=== PATIENT | female | born 1975 | race Caucasian/White ===

== ENCOUNTER 2016-05-25 18:49 | Emergency (ER) | payer OTHER ==
[~2016-05-25] VITALS: Ht 154.9 cm; Wt 70.9 kg
[~2016-05-25 18:49] MED LIST: PROM25TA9 PO; PRVHFAIN INH
[2016-05-25 19:02] VITALS: TEMP 37; Ht 154.9 cm; Wt 70.9 kg
[2016-05-25] MEDS ORDERED: MECLIZINE HCL 25 MG TAB PO STA (20:29)
[2016-05-25] MEDS ORDERED: SODIUM CHLORIDE 0.9% 1000ML 1,000 ML IV STA (20:29)
[2016-05-25] MEDS ORDERED: SODIUM CHLORIDE 0.9% 1000ML 500 ML IV STA (20:29)
[2016-05-25 20:57] LABS: BASO % 0.5 %; BASO ABS # 0.04 K/uL (0-0.2); COMPLETE YES; EOS % 1.3 %; HEMATOCRIT 39.2 % (37-47); LYMPH ABS # 2.76 K/uL (1.2-3.4); MEAN CELL VOLUME 89.5 fL (80-100); MEAN CORPUSCULAR HEMOGLOBIN 31.1 pg (25-34); MEAN CORPUSCULAR HGB CONC 34.7 g/dl (32-36); MEAN PLATELET VOLUME 10.9 fL (7.4-10.4); MONO % 6.1 %; NEUT % 60.1 %; PLATELET COUNT 253 K/uL (130-400); RED BLOOD COUNT 4.38 M/uL (4.2-5.4); WHITE BLOOD COUNT 8.63 K/uL (4.8-10.8)
--- NOTE | 2016-05-25 21:03 | EMERGENCY ROOM VISIT NOTE ---
History Report prepared by Eran: Lashanda Stein Under the Supervision of: Dr. Gadiel Abdullahi M.D. First contact with patient: 20:07 Chief Complaint: VERTIGO Stated Complaint: VERTIGO(SEVERE), PERIOD W/ HEAVY FLOW, LYMES Nursing Triage Summary: pt states she developed severe vertigo around 1430 today History of Present Illness The patient is a 40 year old female who presents to the Emergency Room with complaints of constant vertigo beginning 6 hours prior to arrival. The patient notes that she use to experience dizziness with migraine however denies ever having a sensation like this. She describes the vertigo as a spinning sensation and is having trouble focusing. The patient is experiencing nausea. She also has a headache in the back of her head which is not her typical migraine location. She does note that movement worsens the symptoms and leaning against a solid object helps to subside the symptoms. The patient yesterday had a very heavy period. She denies weakness to her extremities, head injury, or vision changes. The patient finished her last treatment for Lyme in April 2016. Her PTSD medication dosage has been lowered recently. 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 Review of Systems See HPI for pertinent positives & negatives. A total of 10 systems reviewed and were otherwise negative. Past Medical & Surgical Medical Problems: (1) Asthma (2) Depression (3) Ovarian cyst Surgical Problems: (1) History of appendectomy (2) History of cardiac ablation (3) History of tonsillectomy Family History FHx: cancer FHx: heart disease FHx: hypertension Social History Smoking Status: Never Smoker Alcohol Use: none Drug Use: none Marital Status: Housing Status: lives with significant other Occupation Status: employed Current/Historical Medications Scheduled Albuterol (Ventolin Hfa), 2 PUFFS INH UD Epinephrine (Epipen), 0.3 MG IM UD Escitalopram Oxalate (Lexapro), 2.5 MG PO DAILY Scheduled PRN Clonazepam (Klonopin), 0.5 MG PO TID PRN for Anxiety Diphenhydramine Hcl (Benadryl Allergy), 1-2 CAP PO Q8H PRN for Itching Meclizine HCl (Meclizine HCl), 1-2 TAB PO Q6H PRN for Dizziness or Vertigo Naproxen (Aleve), 220 MG PO Q12H PRN for Pain Promethazine Hcl (Phenergan), 25 MG PO Q6H PRN for Nausea Allergies Coded Allergies: Della Nut (Unverified Allergy, Severe, STOPS BREATHING, 02/19/16) Erythromycin (Verified Allergy, Intermediate, ABDOMINAL PAIN, 02/19/16) NUTS (Verified Allergy, Intermediate, SHORTNESS OF BREATH, 02/19/16) Ciprofloxacin (Verified Allergy, Unknown, unknown, 02/19/16) Physical Exam Vital Signs Date Time Temp Pulse Resp B/P Pulse Ox O2 Delivery O2 Flow Rate FiO2 05/25/16 20:51 67 16 134/85 100 Room Air 05/25/16 19:02 37.0 92 18 137/93 97 Room Air Physical Exam GENERAL: Patient is in no acute distress. HEENT: No acute trauma, normocephalic atraumatic, mucous membranes moist, no nasal congestion, no scleral icterus. Pupils are equal and reactive to light, no nystagmus. Right TM clear, left TM has fluid behind the rum with no infection. NECK: No stridor, no adenopathy, no meningismus, trachea is midline. LUNGS: Clear to auscultation bilaterally, no wheeze, no rhonchi, breath sounds equal. HEART: Without murmurs gallops or rubs, regular rate and rhythm. ABDOMEN: Soft, nontender, bowel sounds positive, no hernias, no peritonitis. EXTREMITIES: No cyanosis or edema, full range of motion of all the joints without pain or difficulty, no signs for acute trauma. NEUROLOGIC: Oriented x 3, no acute motor or sensory deficits, no focal weakness. No pronator drift or cerebellar dysfunction. SKIN: No rash, no jaundice, no diaphoresis. Medical Decision & Procedures ER Provider Diagnostic Interpretation: CT results as stated below per my review and radiologist interpretation: CT HEAD WITHOUT CONTRAST (CT) CLINICAL HISTORY: Altered mental status. Weakness. COMPARISON STUDY: 08/21/2011 TECHNIQUE: Axial CT of the brain is performed from the vertex to the skull base. IV contrast was not administered for this examination. CT DOSE: 537.48 mGy.cm FINDINGS: No intra or extra-axial mass lesions are visualized. There is no CT evidence of acute cortical infarction. There is no evidence of midline shift. There is no acute hemorrhage. No calvarial fractures are visualized. There is no evidence of pathologic ventricular dilatation. There is no evidence of acute sinusitis IMPRESSION: Normal noncontrast head CT for age Electronically signed by: Darin Bennett M.D. 05/25/2016 9:08 PM Dictated Date/Time: 05/25/2016 9:07 PM Laboratory Results 05/25/16 20:47 Red Blood Count 4.38, Mean Corpuscular Volume 89.5, Mean Corpuscular Hemoglobin 31.1, Mean Corpuscular Hemoglobin Concent 34.7, Mean Platelet Volume 10.9, Neutrophils (%) (Auto) 60.1, Lymphocytes (%) (Auto) 32.0, Monocytes (%) (Auto) 6.1, Eosinophils (%) (Auto) 1.3, Basophils (%) (Auto) 0.5, Neutrophils # (Auto) 5.19, Lymphocytes # (Auto) 2.76, Monocytes # (Auto) 0.53, Eosinophils # (Auto) 0.11, Basophils # (Auto) 0.04 05/25/16 20:47 Test 05/25/16 00:00 05/25/16 20:47 Urine Color YELLOW Urine Appearance CLEAR (CLEAR) Urine pH 5.0 (4.5-7.5) Urine Specific [place] 1.000 (1.000-1.030) Urine Protein NEG (NEG) Urine Glucose (UA) NEG (NEG) Urine Ketones NEG (NEG) Urine Occult Blood TRACE (NEG) Urine Nitrite NEG (NEG) Urine Bilirubin NEG (NEG) Urine Urobilinogen NEG (NEG) Urine Leukocyte Esterase NEG (NEG) Urine WBC (Auto) 0 /hpf (0-5) Urine RBC (Auto) 0-4 /hpf (0-4) Urine Hyaline Casts (Auto) 0 /lpf (0-5) Urine Epithelial Cells (Auto) 0-5 /lpf (0-5) Urine Bacteria (Auto) NEG (NEG) Urine Test NEG (NEG) White Blood Count 8.63 K/uL (4.8-10.8) Red Blood Count 4.38 M/uL (4.2-5.4) Hemoglobin 13.6 g/dL (12.0-16.0) Hematocrit 39.2 % (37-47) Mean Corpuscular Volume 89.5 fL (80-100) Mean Corpuscular Hemoglobin 31.1 pg (25-34) Mean Corpuscular Hemoglobin Concent 34.7 g/dl (32-36) Platelet Count 253 K/uL (130-400) Mean Platelet Volume 10.9 fL (7.4-10.4) Neutrophils (%) (Auto) 60.1 % Lymphocytes (%) (Auto) 32.0 % Monocytes (%) (Auto) 6.1 % Eosinophils (%) (Auto) 1.3 % Basophils (%) (Auto) 0.5 % Neutrophils # (Auto) 5.19 K/uL (1.4-6.5) Lymphocytes # (Auto) 2.76 K/uL (1.2-3.4) Monocytes # (Auto) 0.53 K/uL (0.11-0.59) Eosinophils # (Auto) 0.11 K/uL (0-0.5) Basophils # (Auto) 0.04 K/uL (0-0.2) RDW Standard Deviation 43.1 fL (36.4-46.3) RDW Coefficient of Variation 13.1 % (11.5-14.5) Immature Granulocyte % (Auto) 0.0 % Immature Granulocyte # (Auto) 0.00 K/uL (0.00-0.02) Anion Gap 10.0 mmol/L (3-11) Est Creatinine Clear Calc Drug Dose 109.2 ml/min Estimated GFR () 130.5 Estimated GFR (Non- 112.6 BUN/Creatinine Ratio 13.0 (10-20) Calcium Level 9.1 mg/dl (8.5-10.1) Total Bilirubin 0.1 mg/dl (0.2-1) Aspartate Amino Transf (AST/SGOT) 39 U/L (15-37) Alanine Aminotransferase (ALT/SGPT) 74 U/L (12-78) Alkaline Phosphatase 80 U/L (45-117) Total Protein 8.0 gm/dl (6.4-8.2) Albumin 3.9 gm/dl (3.4-5.0) Globulin 4.1 gm/dl (2.5-4.0) Albumin/Globulin Ratio 1.0 (0.9-2) Laboratory results reviewed by me. Medications Administered Medications (Trade) Dose Ordered Sig/Dawood Route Start Time Stop Time Status Last Admin Dose Admin Sodium Chloride 500 ml @ 999 mls/hr Q31M STAT IV 05/25/16 20:29 05/25/16 20:59 DC 05/25/16 20:49 999 MLS/HR Sodium Chloride (Nss 1000ml) 1,000 ml @ 200 mls/hr Q5H STAT IV 05/25/16 20:29 05/26/16 01:28 05/25/16 20:49 200 MLS/HR Meclizine HCl (Antivert Tab) 25 mg NOW STAT PO 05/25/16 20:29 05/25/16 20:32 DC 05/25/16 20:48 25 MG ECG Indication: other (vertigo) Rate (beats per minute): 70 Rhythm: normal sinus Findings: no acute ischemic change, no ectopy ED Course 2007: The patient was evaluated in room C10. A complete history and physical exam was performed. 2028: Antivert Tab 25 mg PO, Sodium Chloride 1,000 ml @ 200 mls/hr IV, Sodium Chloride 500 ml @ 999 mls/hr IV 2151: Reevaluated the patient. Discussed results and discharge instructions: She verbalized understanding and agreement. The patient is ready for discharge. Medical Decision The patient is a 40 year old female who presents to the ED with complaints of vertigo. Differential diagnoses considered include medication reaction, vertigo , anemia, electrolyte imbalance, dehydration, UTI, intracranial bleeding, stroke , migraine. There is no leukocytosis or concerning anemia. No significant electrolyte abnormality, kidney failure or hepatitis. Urinalysis does not show infection. testing is negative. On exam, there were no focal neurologic deficits. The patient was not febrile or toxic. There was no meningismus. Brain CT was done, no acute bleed or mass effect. The patient presents with a mild posterior headache, what sounds like vertigo and nausea. Her workup is benign, she was given IV saline and oral meclizine, she feels markedly improved. The patient likely has vertigo. She is being discharged on meclizine. If worsening, she can return. Outpatient family doctor follow-up was suggested. Impression Primary Impression: Vertigo Scribe Attestation The scribe's documentation has been prepared under my direction and personally reviewed by me in its entirety. I confirm that the note above accurately reflects all work, treatment, procedures, and medical decision making performed by me. Departure Information Dispostion Home / Self-Care Prescriptions Meclizine HCl (Meclizine HCl) 25 Mg Tab 1-2 TAB PO Q6H Y for Dizziness or Vertigo, #15 TAB Prov: Gadiel Abdullahi M.D. 05/25/16 Referrals Cici Coronel M.D. (PCP) Forms HOME CARE DOCUMENTATION FORM, IMPORTANT VISIT INFORMATION, WORK / SCHOOL INSTRUCTIONS Patient Instructions My [facility] Additional Instructions fluids rest meclizine 1-2 tab every 6 hours for vertigo as needed follow with delfino mueller this week return for worsening symptoms testing today was all ok
[2016-05-25 21:10] LABS: PREG INTERNAL NEGATIVE QC NEG CLEAR BACKGROUND; PREG INTERNAL POSITIVE QC POS CONTROL LINE
--- NOTE | 2016-05-25 21:10 | DIAGNOSTIC IMAGING REPORT ---
CT HEAD WITHOUT CONTRAST (CT) CLINICAL HISTORY: Altered mental status. Weakness. COMPARISON STUDY: 08/21/2011 TECHNIQUE: Axial CT of the brain is performed from the vertex to the skull base. IV contrast was not administered for this examination. CT DOSE: 537.48 mGy.cm FINDINGS: No intra or extra-axial mass lesions are visualized. There is no CT evidence of acute cortical infarction. There is no evidence of midline shift. There is no acute hemorrhage. No calvarial fractures are visualized. There is no evidence of pathologic ventricular dilatation. There is no evidence of acute sinusitis IMPRESSION: Normal noncontrast head CT for age Electronically signed by: Darin Bennett M.D. 05/25/2016 9:08 PM Dictated Date/Time: 05/25/2016 9:07 PM
[2016-05-25 21:11] LABS: MANUAL MICROSCOPIC REQUIRED? NO; REVIEW REQ? NO; URINE APPEARANCE CLEAR (CLEAR); URINE BILIRUBIN NEG (NEG); URINE COLOR YELLOW; URINE EPITHELIAL CELL AUTO 0-5 /lpf (0-5); URINE NITRITE NEG (NEG); UROBILINOGEN NEG (NEG); ZZUR CULT IF INDIC CLEAN CATCH NO
[2016-05-25 21:15] LABS: CALCIUM 9.1 mg/dl (8.5-10.1); CREATININE 0.61 mg/dl (0.60-1.20); POTASSIUM 3.6 mmol/L (3.5-5.1)
[2016-05-25] MEDS ORDERED: ANT25 PO (21:51)
[2016-05-25] MEDS ORDERED: MECLIZINE HCL 25MG HOME PACK PO ONE (22:00)
[2016-05-25 22:28] VITALS: BP 108/87; PULSE 66; O2SAT 95
[2016-09-09] MEDS ORDERED: ESCI1TAB6 PO (11:53)
[2016-11-05] MEDS ORDERED: POTA99TA PO (11:14)
[2016-11-05] MEDS ORDERED: CLON0.5T3 PO (11:14)
[2016-11-05] MEDS ORDERED: MULT-506 PO (11:14)
[2016-11-16] MEDS ORDERED: HYDR-5688 PO (09:30)
== END 2016-05-25 22:29 | disposition home or self-care (01) ==
LOC: C.EDB 18:50 → C.EDC 22:29
DX: R42 Dizziness and giddiness (principal); J45.909 Unspecified asthma, uncomplicated; F32.9 Major depressive disorder, single episode, unspecified; F43.10 Post-traumatic stress disorder, unspecified; Z79.899 Other long term (current) drug therapy

== ENCOUNTER → 2016-09-05 | Outpatient (CLI) | payer OTHER ==
[~2016-09-05] MED LIST changes: +ACET-1256 PO; +ALBU18002 INH; +ANT25 PO; +AZIT250T PO; +CLON0.5T3 PO; +CLR10 PO; +DIPH25CA65 PO; +EPP3/2 IM; +ESCI1TAB6 PO; +FLUT0.15 NAE; +GUAI100L18 PO; +HYDR-5688 PO; +IBUP-103 PO; +LAMO25TA PO; +MULT-506 PO; +NAPR1TAB9 PO; +POTA99TA PO; +PRED20TA PO; -PROM25TA9 PO
--- NOTE | 2016-09-06 13:20 | MAMMOGRAPHY REPORT ---
BILATERAL DIGITAL SCREENING MAMMOGRAM TOMOSYNTHESIS WITH CAD: 09/05/2016 CLINICAL HISTORY: Routine screening. TECHNIQUE: Breast tomosynthesis in addition to standard 2D mammography was performed. Current study was also evaluated with a Computer Aided Detection (CAD) system. COMPARISON: Comparison is made to exams dated: 06/25/2014 mammogram, 06/25/2014 ultrasound, and 2014 breast MRI. BREAST COMPOSITION: The tissue of both breasts is heterogeneously dense, which may obscure small ma sses. FINDINGS: There is architectural distortion seen within the left slightly medial breast, possibly p rojecting superiorly on the MLO view. Additionally, there are multiple other areas of possible arch itectural distortion seen within the left lateral and medial breast on the tomosynthesis images. Re commend spot compression tomosynthesis views and possible breast ultrasound for further evaluation. The remainder of both breasts are stable compared to prior exams, without suspicious masses, calcifi cations, or areas of architectural distortion noted. Bilateral benign-appearing calcifications are not significantly changed. There are multiple small circumscribed masses seen bilaterally, best see n on the tomosynthesis images, which are considered benign given the multiplicity and bilaterality a nd likely represent cysts. IMPRESSION: ACR BI-RADS CATEGORY 0: INCOMPLETE EVALUATION: NEED ADDITIONAL IMAGING EVALUATION Areas of left breast architectural distortion, for which additional imaging evaluation is recommende d. The patient will be called to schedule an appointment. Approximately 10% of breast cancers are not detected with mammography. A negative mammographic repor t should not delay biopsy if a clinically suggestive mass is present. Ita Crooks M.D. ah/:09/05/2016 16:37:13 Bait Tier: Prerna SIBLEY(R)(M), [facility] letter sent: Addl Imaging 0 BI-RADS Code: ACR BI-RADS Category 0: Incomplete Evaluation: Need Additional Imaging Evaluation
== END | disposition home or self-care (01) ==
LOC: C.MAMM 12:49
PROVIDERS: ATTEND Family Medicine
DX: Z12.31 Encounter for screening mammogram for malignant neoplasm of breast (principal); N64.9 Disorder of breast, unspecified

== ENCOUNTER 2016-09-09 22:14 | Emergency (ER) | payer OTHER ==
[~2016-09-09] VITALS: Ht 154.9 cm; Wt 74.5 kg
[~2016-09-09 22:14] MED LIST changes: -ACET-1256 PO; -ALBU18002 INH; -AZIT250T PO; -CLON0.5T3 PO; -CLR10 PO; -DIPH25CA65 PO; -EPP3/2 IM; -FLUT0.15 NAE; -GUAI100L18 PO; -HYDR-5688 PO; -IBUP-103 PO; -LAMO25TA PO; -MULT-506 PO; -NAPR1TAB9 PO; -POTA99TA PO; -PRED20TA PO
[2016-09-09 22:21] VITALS: TEMP 37; Ht 154.9 cm; Wt 74.5 kg
[2016-09-09] MEDS ORDERED: NAPR1TAB9 PO (22:30)
[2016-09-09] MEDS ORDERED: CLON0.5T3 PO ×2 (22:30→22:53)
[2016-09-09] MEDS ORDERED: DIPH25CA65 PO (22:33)
[2016-09-09] MEDS ORDERED: EPP3/2 IM (22:39)
[2016-09-09] MEDS ORDERED: METHYLPREDNISOLONE 125 MG VIAL IV STA (22:46)
[2016-09-09] MEDS ORDERED: FLUT0.15 NAE (22:53)
[2016-09-09] MEDS ORDERED: ALBU18002 INH (22:53)
[2016-09-09] MEDS ORDERED: PRED20TA PO (22:53)
[2016-09-09] MEDS ORDERED: CLR10 PO (22:53)
[2016-09-09] MEDS ORDERED: GUAI100L18 PO (22:53)
[2016-09-09] MEDS ORDERED: LAMO25TA PO (22:53)
[2016-09-09] MEDS ORDERED: SODIUM CHLORIDE 0.9% 1000ML 1,000 ML IV ONE (23:00)
[2016-09-09] MEDS ORDERED: ALBUT/IPRATROP 3MG/0.5MG NEB 3 ML VIAL INH ONE (23:00)
[2016-09-09 23:10] LABS: URINE APPEARANCE CLEAR (CLEAR); URINE BILIRUBIN NEG (NEG); URINE COLOR YELLOW; URINE NITRITE NEG (NEG); URINE SPECIFIC GRAVITY 1.019 (1.000-1.030); UROBILINOGEN NEG (NEG); ZZUR CULT IF INDIC CLEAN CATCH NO
[2016-09-09 23:14] VITALS: O2SAT 98
[2016-09-09 23:14] LABS: MANUAL MICROSCOPIC REQUIRED? NO; REVIEW REQ? NO
[2016-09-09 23:19] LABS: WHITE BLOOD COUNT 10.94 K/uL (4.8-10.8)
[2016-09-09 23:20] LABS: COMPLETE YES; HEMATOCRIT 38.7 % (37-47); IG% 0.5 %; LYMPH % 11.5 %; LYMPH ABS # 1.26 K/uL (1.2-3.4); MEAN CELL VOLUME 91.1 fL (80-100); MEAN CORPUSCULAR HEMOGLOBIN 29.6 pg (25-34); MEAN CORPUSCULAR HGB CONC 32.6 g/dl (32-36); MEAN PLATELET VOLUME 10.3 fL (7.4-10.4); MONO % 2.7 %; NEUT % 85.3 %; PLATELET COUNT 307 K/uL (130-400); RED BLOOD COUNT 4.25 M/uL (4.2-5.4)
[2016-09-09 23:36] LABS: BUN/CREATININE RATIO 12.4 (10-20); CALCIUM 8.6 mg/dl (8.5-10.1); CREATININE 0.67 mg/dl (0.60-1.20); POTASSIUM 4.2 mmol/L (3.5-5.1)
[2016-09-09 23:38] LABS: ALB/GLOB RATIO 0.9 (0.9-2)
[2016-09-09 23:44] VITALS: PULSE 100; O2SAT 100
[2016-09-10] VITALS: BP 102/67
[2016-09-10] MEDS ORDERED: AZIT250T PO (00:11)
[2016-09-10] MEDS ORDERED: AZITHROMYCIN 250 MG TAB PO ONE (00:15)
--- NOTE | 2016-09-10 04:59 | EMERGENCY ROOM VISIT NOTE ---
History First contact with patient: 22:30 Chief Complaint: RESPIRATORY PROBLEMS Stated Complaint: PAIN W/BREATHING, HEAVY CHEST, HX BRONCHITIS Nursing Triage Summary: Pt came in tonight for worsening respiratory issues. Pt has been having trouble breathing for the last 2 weeks. Yesterday the pt came in and was diagnosed with bronchitis. Pt was given inhaler and prednisone. Pt states that its very difficult for her to get her breath. She states it feels like something is sitting on her chest. She has been coughing up a lot of mucus. History of Present Illness The patient is a 41 year old female who presents to the Emergency Room with complaints of cough and chest congestion for the past 11 days. The patient states that she went to her primary care physician yesterday was diagnosed with bronchitis. The patient was given an inhaler and a prescription for prednisone. The patient states that she has felt well throughout the day, but now that it is nighttime she feels it is difficult for her to get her breath. She reports central chest pain after coughing, and states that the cough has been productive. She does not report fever or chills. No abdominal pain. The patient has not had chronic symptoms like this in the past and rates her current discomfort at 7/10. Review of Systems More than 10 systems were reviewed and otherwise negative with the exception of history of present illness. Past Medical/Surgical History Medical Problems: (1) Asthma (2) Depression (3) Ovarian cyst Surgical Problems: (1) History of appendectomy (2) History of cardiac ablation (3) History of tonsillectomy Family History FHx: cancer FHx: heart disease FHx: hypertension Social History Smoking Status: Never Smoker Alcohol Use: none Drug Use: none Marital Status: Housing Status: lives with significant other Occupation Status: employed Current/Historical Medications Scheduled Albuterol Sulfate (Proair Respiclick), 2 PUFFS INH Q4H Azithromycin (Zithromax), 250 MG PO DAILY Clonazepam (Klonopin), 0.5 MG PO HS Escitalopram Oxalate (Lexapro), 2.5 MG PO DAILY Fluticasone Propionate (Nasal) (Flonase Allergy Relief), 2 SPRAYS RINKU DAILY Lamotrigine (Lamictal), 25 MG PO DAILY Prednisone (Prednisone), 20 MG PO UD Scheduled PRN Clonazepam (Klonopin), 0.5 MG PO DAILY PRN for Anxiety Diphenhydramine Hcl (Benadryl Allergy), 25-50 MG PO Q8H PRN for Itching Epinephrine (Epipen), 0.3 MG IM UD PRN for ALLERGIC REACTION Guaifenesin (Childrens Mucus Relief Ex), 200 MG PO Q4H PRN for Congestion Loratadine (Claritin), 10 MG PO DAILY PRN for Allergy Symptoms Naproxen (Aleve), 220 MG PO Q12H PRN for Pain Allergies Coded Allergies: Della Nut (Unverified Allergy, Severe, STOPS BREATHING, 05/25/16) Erythromycin (Verified Allergy, Intermediate, ABDOMINAL PAIN, 05/25/16) NUTS (Verified Allergy, Intermediate, SHORTNESS OF BREATH, 05/25/16) Ciprofloxacin (Verified Allergy, Unknown, unknown, 05/25/16) Physical Exam Vital Signs Date Time Temp Pulse Resp B/P Pulse Ox O2 Delivery O2 Flow Rate FiO2 09/10/16 00:00 102/67 09/09/16 23:44 100 20 100 09/09/16 23:34 122/74 09/09/16 23:14 80 14 98 09/09/16 23:14 98 Room Air 09/09/16 23:13 80 09/09/16 23:10 83 18 112/78 98 Room Air 09/09/16 22:41 97 Room Air 09/09/16 22:21 37.0 88 22 140/89 94 Room Air Pain Rating (0-10): 6.0 Physical Exam VITALS: Vitals are noted on the nurse's note and reviewed by myself. Vital signs stable. GENERAL: Well-developed, well-nourished, white female, who is in no acute distress and resting comfortably. Patient is cooperative with the examination. HEAD: Normocephalic atraumatic. EARS: External ear normal. External auditory canals clear, tympanic membranes pearly nails without erythema or effusion bilaterally. EYES: Pupils equal round and reactive to light and accommodation. Conjunctivae without injection, sclerae without icterus. Extraocular movements intact. NOSE: Patent, turbinates without inflammation or discharge. MOUTH: Mucous membranes moist. Tonsils are not enlarged. Pharynx without erythema, blood, or exudate. Uvula midline. Airway patent. NECK: Supple without nuchal rigidity. No lymphadenopathy. No thyromegaly. Cervical spine is nontender. HEART: Regular rate and rhythm without murmurs gallops or rubs. LUNGS: Coarse breath sounds throughout with scattered wheezing and rhonchi. No distinct crackles or rales. After treatment lung sounds were improved with scant wheezing. Medical Decision & Procedures Laboratory Results 09/09/16 23:00 Red Blood Count 4.25, Mean Corpuscular Volume 91.1, Mean Corpuscular Hemoglobin 29.6, Mean Corpuscular Hemoglobin Concent 32.6, Mean Platelet Volume 10.3, Neutrophils (%) (Auto) 85.3, Lymphocytes (%) (Auto) 11.5, Monocytes (%) (Auto) 2.7, Eosinophils (%) (Auto) 0.0, Basophils (%) (Auto) 0.0, Neutrophils # (Auto) 9.33, Lymphocytes # (Auto) 1.26, Monocytes # (Auto) 0.30, Eosinophils # (Auto) 0.00, Basophils # (Auto) 0.00 09/09/16 23:00 Test 09/09/16 22:55 09/09/16 23:00 09/09/16 23:05 Urine Color YELLOW Urine Appearance CLEAR (CLEAR) Urine pH 8.0 (4.5-7.5) Urine Specific [place] 1.019 (1.000-1.030) Urine Protein NEG (NEG) Urine Glucose (UA) TRACE (NEG) Urine Ketones NEG (NEG) Urine Occult Blood NEG (NEG) Urine Nitrite NEG (NEG) Urine Bilirubin NEG (NEG) Urine Urobilinogen NEG (NEG) Urine Leukocyte Esterase NEG (NEG) White Blood Count 10.94 K/uL (4.8-10.8) Red Blood Count 4.25 M/uL (4.2-5.4) Hemoglobin 12.6 g/dL (12.0-16.0) Hematocrit 38.7 % (37-47) Mean Corpuscular Volume 91.1 fL (80-100) Mean Corpuscular Hemoglobin 29.6 pg (25-34) Mean Corpuscular Hemoglobin Concent 32.6 g/dl (32-36) Platelet Count 307 K/uL (130-400) Mean Platelet Volume 10.3 fL (7.4-10.4) Neutrophils (%) (Auto) 85.3 % Lymphocytes (%) (Auto) 11.5 % Monocytes (%) (Auto) 2.7 % Eosinophils (%) (Auto) 0.0 % Basophils (%) (Auto) 0.0 % Neutrophils # (Auto) 9.33 K/uL (1.4-6.5) Lymphocytes # (Auto) 1.26 K/uL (1.2-3.4) Monocytes # (Auto) 0.30 K/uL (0.11-0.59) Eosinophils # (Auto) 0.00 K/uL (0-0.5) Basophils # (Auto) 0.00 K/uL (0-0.2) RDW Standard Deviation 45.0 fL (36.4-46.3) RDW Coefficient of Variation 13.5 % (11.5-14.5) Immature Granulocyte % (Auto) 0.5 % Immature Granulocyte # (Auto) 0.05 K/uL (0.00-0.02) Anion Gap 8.0 mmol/L (3-11) Est Creatinine Clear Calc Drug Dose 100.9 ml/min Estimated GFR () 125.7 Estimated GFR (Non- 108.4 BUN/Creatinine Ratio 12.4 (10-20) Calcium Level 8.6 mg/dl (8.5-10.1) Total Bilirubin 0.1 mg/dl (0.2-1) Aspartate Amino Transf (AST/SGOT) 45 U/L (15-37) Alanine Aminotransferase (ALT/SGPT) 168 U/L (12-78) Alkaline Phosphatase 95 U/L (45-117) Total Protein 7.9 gm/dl (6.4-8.2) Albumin 3.7 gm/dl (3.4-5.0) Globulin 4.2 gm/dl (2.5-4.0) Albumin/Globulin Ratio 0.9 (0.9-2) Bedside D-Dimer 173 ng/mlFEU (0-450) Bedside Troponin I 0.000 ng/ml (0-0.045) Medications Administered Medications (Trade) Dose Ordered Sig/Dawood Route Start Time Stop Time Status Last Admin Dose Admin Sodium Chloride (Nss 1000ml) 1,000 ml @ 999 mls/hr Q1H1M ONCE IV 09/09/16 23:00 09/10/16 00:00 DC 09/09/16 23:08 999 MLS/HR Methylprednisolone Sodium Succinate (Solu-Medrol IV) 125 mg NOW STAT IV 09/09/16 22:46 09/09/16 22:48 DC 09/09/16 23:08 125 MG Albuterol/ Ipratropium (Duoneb) 3 ml NOW ONCE INH 09/09/16 23:00 09/09/16 23:01 DC 09/09/16 23:08 3 ML Azithromycin (Zithromax Tab) 500 mg NOW ONCE PO 09/10/16 00:15 09/10/16 00:16 DC 09/10/16 00:15 500 MG ECG Change: Normal sinus rhythm @79 bpm Normal ECG When compared with ECG of 25-MAY-2016 20:43, QRS axis Shifted left Nonspecific T wave abnormality no longer evident in Lateral leads ED Course Physical exam and history were performed. Nursing notes and EMR were reviewed. Patient appears to have bronchitis symptoms for the past 11 days. She does also complain of some central chest discomfort after coughing. EKG was performed and does not show acute ST elevation or ectopy. Chest x-ray was performed. IV access was established and labs were obtained. The patient was hydrated and medicated as above. I did give her Solu-Medrol and a breathing treatment here. The patient's blood work is as above and does not show a significantly elevated white blood cell count, gross anemia, bandemia, or significant electrolyte imbalance. Lipase and transaminases are nondiagnostic. Troponin and d-dimer 1 are both negative, and I do not suspect a cardiac etiology at this time. Her chest x-rays without obvious findings with official radiology read pending. The patient did have improvement of her symptoms after the DuoNeb and Solu- Medrol. I do suspect that she has a bronchitis, and this may persist for the next several days. I will give the patient a course of Zithromax as she has had symptoms for greater than 1 week. She will be asked to follow with her primary care physician with any ongoing or persistent symptoms. The chart was completed utilizing [employer] Speech Voice Recognition Software. Grammatical errors, random word insertions, pronoun errors, and incomplete sentences are an occasional consequence of this system due to software limitations, ambient noise, and hardware issues. Any formal questions or concerns about the content, text, or information contained within the body of this dictation should be directly addressed to the provider for clarification. . Medical Decision Differential diagnosis: Etiologies such as infections, reactive airway disease, pneumonia, pneumothorax , COPD, CHF, cardiac ischemia, pulmonary embolism, musculoskeletal, gastrointestinal, as well as others were entertained. Impression Primary Impression: Acute bronchitis Departure Information Dispostion Home / Self-Care Condition GOOD Prescriptions Azithromycin (Zithromax) 250 Mg Tab 250 MG PO DAILY for 4 Days, #4 TAB Prov: Sesar Marvin PA-C 09/10/16 Forms HOME CARE DOCUMENTATION FORM, IMPORTANT VISIT INFORMATION Patient Instructions My [facility] Additional Instructions You were seen and evaluated today on an emergency basis only. This is not a substitute for, or an effort to provide, complete comprehensive medical care. It is not possible to recognize and treat all injuries or illnesses in a single emergency department visit. For this reason it is recommended that you followup with your primary care physician this week for ongoing care and evaluation. Take Zithromax 250 mg daily for the next 4 days. Continue your prednisone and albuterol as previously instructed. You are welcome to return to the emergency department anytime with new, worsening, or concerning symptoms.
--- NOTE | 2016-09-10 06:56 | DIAGNOSTIC IMAGING REPORT ---
CHEST 2 VIEWS ROUTINE CLINICAL HISTORY: Persistent cough. COMPARISON STUDY: Chest radiograph April 03, 2012. FINDINGS: Lung volumes are normal. Mild left basilar opacity suggests atelectasis. No consolidation is identified. Cardiac size is normal. Mediastinal contours are normal. There is no evidence of pulmonary edema. Interstitial prominence is unchanged. IMPRESSION: No acute cardiopulmonary findings. Electronically signed by: Reagan Cowan M.D. 09/10/2016 6:54 AM Dictated Date/Time: 09/10/2016 6:52 AM
[2016-11-05] MEDS ORDERED: CLON0.5T3 PO (11:14)
[2016-11-05] MEDS ORDERED: POTA99TA PO (11:14)
[2016-11-05] MEDS ORDERED: MULT-506 PO (11:14)
[2016-11-16] MEDS ORDERED: HYDR-5688 PO (09:30)
== END 2016-09-10 00:20 | disposition home or self-care (01) ==
LOC: C.EDB 22:15 → C.EDA 09-10 00:20
DX: J20.9 Acute bronchitis, unspecified (principal); J45.909 Unspecified asthma, uncomplicated; F33.41 Major depressive disorder, recurrent, in partial remission; Z82.49 Family history of ischemic heart disease and other diseases of the circulatory system

== ENCOUNTER → 2016-09-13 | Outpatient (CLI) | payer OTHER ==
[~2016-09-13] MED LIST changes: +ACET-1256 PO; +ALBU18002 INH; -ANT25 PO; +AZIT250T PO; +CLON0.5T3 PO; +CLR10 PO; +DIPH25CA65 PO; +EPP3/2 IM; +FLUT0.15 NAE; +GUAI100L18 PO; +HYDR-5688 PO; +IBUP-103 PO; +LAMO25TA PO; +MULT-506 PO; +NAPR1TAB9 PO; +POTA99TA PO; +PRED20TA PO; -PRVHFAIN INH
--- NOTE | 2016-09-14 15:08 | MAMMOGRAPHY REPORT ---
UNILATERAL LEFT DIGITAL DIAGNOSTIC MAMMOGRAM TOMOSYNTHESIS AND TARGETED LEFT ULTRASOUND: 09/13/2016 CLINICAL HISTORY: Callback from screening mammogram for left breast distortions. TECHNIQUE: Breast tomosynthesis in addition to standard 2D mammography was performed. Spot lori sidney left CC and MLO tomosynthesis images including CT views were obtained. COMPARISON: Comparison is made to exams dated: 09/05/2016 mammogram - [facility], breast MRI, 06/25/2014 mammogram, and 06/25/2014 ultrasound. BREAST COMPOSITION: The tissue of the left breast is heterogeneously dense, which may obscure small masses. FINDINGS: Spot compression views of the left breast demonstrate a focal area of architectural disto rtion posterior to the left nipple on the cc view, thought to project superiorly on the MLO view. T he finding does not appear significantly changed compared to 2-D images from the 06/25/2014 exam. Ad ditionally, there are other areas of possible architectural distortion seen on the tomosynthesis meseret ges, including in the left medial breast on the cc view middle depth (image 34/89), the left 6:00 br east, best seen on the cc tomosynthesis images (image 12/89), as well as possible ill-defined distor tion seen within the left upper outer quadrant best seen on the CC images (image 30/91). The distor tions are much better seen on the tomosynthesis images therefore comparison to the 2014 exam is diff icult as the prior images were only 2-D images. Targeted ultrasound was performed of the left breast in the region of the areas of distortion. The breast tissue is markedly heterogeneous on ultrasound, which reduces the sensitivity of the exam. I n the left breast at 11:00 3 cm from the nipple, there is a ill-defined focal hypoechoic shadowing r egion measuring 2 mm, which could potentially correlate with the most prominent area of distortion. In the left breast at 6:00, there are fibrocystic changes seen without evidence of a suspicious mas s. small benign appearing simple cysts are also seen within the left upper outer quadrant, without e vidence of a suspicious mass. A subtle area of shadowing is seen within the left breast at 4:00 on antiradial scanning, which does not clearly persist on radial scanning and could represent normal sh adowing of Omer's ligament. Given the presence of multiple areas of probable distortion and given the ill-defined nature of find ings on ultrasound, I would recommend a breast MRI for further evaluation. On discussion with the p kaykay, she had difficult times with prior MRIs, and reports that her heart rate increased significa ntly after gadolinium injection and she was quite uncomfortable for even days afterwards. She repor ts a history of a prior arrhythmia status post ablation. Given the prior adverse reaction to gadoli nium, at this time we will defer breast MRI. I would like to sample the dominant area of distortion posterior to the left nipple on the cc view, with differential including radial scar versus maligna ncy. We will attempt stereotactic biopsy, and base the management of the other areas of distortion on the pathology results. IMPRESSION: ACR BI-RADS CATEGORY 4: SUSPICIOUS, TARGETED ULTRASOUND ACR BI-RADS CATEGORY 4: SUSPICI OUS Focal area of architectural distortion in the left breast posterior to the nipple on the cc view, wi th other probable smaller areas of distortion seen on the tomosynthesis images within the left later al and medial breast. Sonographic correlates are not clearly identified. I would recommend bilater al breast MRI for further evaluation, however, the patient has had prior difficulties with prior amado olinium administration as discussed above. Therefore, we will attempt stereotactic biopsy of the do minant area of distortion posterior to the left nipple, and if successful, management of the other a reas of distortion will be based on the pathology results. Given the presence of multiple distortio ns, findings likely represent radial scars although malignancy is not excluded. A phone call was made to the physician's office to confirm faxed results were received. The patient has been verbally notified of the results. She tentatively scheduled the biopsy before leaving the department. Approximately 10% of breast cancers are not detected with mammography. A negative mammographic repor t should not delay biopsy if a clinically suggestive mass is present. Ita Crooks M.D. ah/:09/13/2016 16:06:51 Power Project Manager: Prerna Cornejo, [facility] letter sent: Abnormal 4/5 BI-RADS Code: ACR BI-RADS Category 4: Suspicious Ultrasound BI-RADS: ACR BI-RADS Category 4: Suspic ious
== END | disposition home or self-care (01) ==
LOC: C.MAMM 10:12
PROVIDERS: ATTEND Family Medicine
DX: R92.8 Other abnormal and inconclusive findings on diagnostic imaging of breast (principal)

== ENCOUNTER → 2016-09-20 | Outpatient (CLI) | payer OTHER ==
[~2016-09-20] MED LIST changes: -AZIT250T PO
--- NOTE | 2016-09-20 13:22 | Discharge Instructions ---
Discharge Instructions Procedure Procedure Date: September 20, 2016. Reason for visit: Left Distortion. Discharge Discharge Date: September 20, 2016. Discharge Diagnosis: status post breast biopsy Instructions Activity Recommendations: Additional Limitations (see below) Return to School/Work: no limitations Recommended Home Diet: No Limitations Provider Instructions: ACTIVITY RECOMMENDATIONS: * No lifting, pushing, pulling or exercising the affected side for three days. RETURN TO SCHOOL/WORK: * You may return to work/school after the procedure, but do not perform any strenuous activities for 24 to 48 hours. MEDICATIONS: * Tylenol (two 325 mg) every four to six hours if needed for mild pain (if not allergic to Tylenol). DIET: * Resume previous diet. SPECIAL CARE INSTRUCTIONS: * Keep biopsy site dry for 24 hours. May shower after 24 hours, but do not soak (bathe) incision. * May remove Tegaderm (plastic patch) tomorrow AFTER showering. * Leave the steri-strips on for one week. Allow the steri-strips to fall off by themselves. If not off after one week, you may remove them. You may place a Bandaid crosswise over the strips, if desired. * Apply ice 10 minutes on and 10 minutes off as needed. * Wear a bra at bedtime to sleep more comfortably for 2-3 days. * Your referring physician should have the results after approximately 5 to 7 business days. * Call for unusual bleeding, fever, drainage, etc or if you have any questions call during normal business hours or after hours call Dr Crooks, [phone]. FOLLOW UP VISIT: Follow-up with Referring Physician as scheduled. Allergies Coded Allergies: Della Nut (Unverified Allergy, Severe, STOPS BREATHING, 05/25/16) Erythromycin (Verified Allergy, Intermediate, ABDOMINAL PAIN, 05/25/16) NUTS (Verified Allergy, Intermediate, SHORTNESS OF BREATH, 05/25/16) Ciprofloxacin (Verified Allergy, Unknown, unknown, 05/25/16) Elayne Kingsley Recommendations: Call your doctor if: * Temperature above 101 degrees * Pain not relieved by pain medicine ordered * There is increased drainage or redness from any incision * You have any unanswered questions or concerns. Your Doctors Instructions noted above were prepared by provider Ita Crooks. Patient Signature Section: Patient Instructions Signature Page Padmini Zepeda Patient (or Guardian) Signature/Date: I have read and understand the instructions given to me by my caregivers. Caregiver/RN/Doctor Signature/Date: The above-named patient and/or guardian has received patient instructions on this date. + Original Patient Signature Page (only) stays with chart. Please make copy for patient.
--- NOTE | 2016-09-20 15:54 | MAMMOGRAPHY REPORT ---
THIS REPORT HAS BEEN AMENDED. AMENDMENT: 09/26/2016 Ita Crooks M.D. Pathology results from left breast stereotactic biopsy was reviewed on 09/26/2016. The pathology lex wed a radial scar with usual ductal hyperplasia, with surgical excision recommended by the pathologi st. The pathology is concordant with the imaging findings, and surgical excision of the dominant bi opsied area of distortion in the left breast is recommended. If the final pathology of the surgical excision is benign and not malignant, recommend short interval follow-up diagnostic mammograms of t kiera other smaller possible areas of distortion within the left breast in 6 months. STEREOTACTIC GUIDED BIOPSY LEFT BREAST: 09/20/2016 CLINICAL HISTORY: Architectural distortion within the left breast. PATIENT CONSENT: The procedure, risks, benefits, and alternatives of stereotactic biopsy with clip p lacement were discussed with the patient, and verbal and written consent was obtained. A timeout wa s performed immediately prior to the procedure. PROCEDURE DESCRIPTION: With stereotactic guidance, aseptic technique, and lidocaine as a local anest hetic (1% lidocaine to anesthetize the skin and 1% lidocaine with epinephrine to anesthetize the umm per tissues), the area of concern was sampled multiple times with a 9-gauge vacuum-assisted biopsy n eedle ([employer]). The path of approach was craniocaudal. A metallic marker clip was placed at t kiera biopsy site. This was confirmed on postprocedure mammograms. Direct pressure was applied at the biopsy site and hemostasis was readily achieved. The patient tolerated the procedure without compl ication. She was given wound care instructions. COMPARISON: Comparison is made to exams dated: 09/13/2016 mammogram, 09/13/2016 ultrasound, 09/05/2016 mammogram - [facility], 06/25/2014 mammogram, 06/25/2014 ultrasound, and 07/15/2014 b reast MRI. IMPRESSION: STEREOTACTIC GUIDED BIOPSY Stereotactic biopsy of area of architectural distortion in the left breast posterior to the left nip ple on the cc view, with clip placement. The patient will receive pathology results from her referr ing provider. The pathology results will also be reviewed and an addendum will be made if there are further recommendations once results are reviewed. Ita Crooks M.D. ah/:09/20/2016 13:41:40 Attending Technologist: Belinda DAVID)(M), [facility] Standards Analyst: Vika DAVID)(M), [facility]
--- NOTE | 2016-09-20 15:54 | MAMMOGRAPHY REPORT ---
UNILATERAL LEFT DIGITAL DIAGNOSTIC MAMMOGRAM TOMOSYNTHESIS: 09/20/2016 CLINICAL HISTORY: Status post left breast stereotactic biopsy. TECHNIQUE: Breast tomosynthesis in addition to standard 2D mammography was performed. Left CC and ML 2-D and tomosynthesis images were obtained. COMPARISON: Comparison is made to exams dated: 09/13/2016 mammogram, 09/13/2016 ultrasound, 09/05/2016 mammogram - [facility], 07/15/2014 breast MRI, 06/25/2014 mammogram, and 06/25/2014 u ltrasound. BREAST COMPOSITION: The tissue of the left breast is heterogeneously dense, which may obscure small masses. FINDINGS: A preprocedural left cc view was obtained for biopsy planning purposes. Postprocedural l eft CC and ML tomosynthesis images including C views were obtained, which shows a new biopsy marker clip in the l eft 12:00 breast at the site of the biopsied architectural distortion. A small postbiopsy hematoma is noted which measures 12 mm. IMPRESSION: POST PROCEDURE IMAGING FOR MARKER PLACEMENT New biopsy marker clip status post stereotactic biopsy of architectural distortion in the left 12:00 breast. Pathology results are pending. Approximately 10% of breast cancers are not detected with mammography. A negative mammographic repor t should not delay biopsy if a clinically suggestive mass is present. Ita Crooks M.D. ah/:09/20/2016 13:43:44 Attending Technologist: Belinda Carrasquillo RT(R)(M), [facility] Filler Spreader: Vika Fernandez RT(R)(M), [facility] BI-RADS Code: Post Procedure Imaging For Marker Placement
== END | disposition home or self-care (01) ==
LOC: C.MAMM 12:33
PROVIDERS: ATTEND Family Medicine
DX: N60.92 Unspecified benign mammary dysplasia of left breast (principal)

== ENCOUNTER → 2016-11-16 | Day surgery (SDC) | payer OTHER ==
[2016-11-05 11:15] VITALS: Ht 154.9 cm; Wt 72.7 kg
[~2016-11-16] VITALS: Ht 154.9 cm; Wt 72.7 kg
[~2016-11-16] MED LIST changes: +ATROPINE SULFATE 0.1 MG/ML 5ML SYR IV PRN; +CLINDAMYCIN PHOS 150 MG/ML 2 ML VIAL IV SCH; +DEXAMETHASONE SOD INJ 4 MG/ML VIAL ONE; +EpHEDrine SULFATE INJ 50 MG/ML AMP IV PRN; +FENTANYL CITRATE INJ 50 MCG/1 ML 2 ML VIAL IV PRN; +FENTANYL CITRATE INJ 50 MCG/1 ML 2 ML VIAL ONE; -FLUT0.15 NAE; -GUAI100L18 PO; +HYDROCODONE/ACETAMOPHEN 5/325MG TAB PO PRN; +LACTATED RINGER'S 1000ML 1,000 ML IV SCH; +LIDOCAINE HCL 2% 2 ML VIAL (20MG/ML) ONE; +MIDAZOLAM HCL 1 MG/ML 2ML VIAL ONE; -NAPR1TAB9 PO; +ONDANSETRON INJ 2 MG/ML 2 ML VIAL IV PRN; +ONDANSETRON INJ 2 MG/ML 2 ML VIAL ONE; -PRED20TA PO; +PROMETHAZINE HCL INJ 6.25 MG in SODIUM CHLORIDE 0.9% 50ML 50 ML IV PRN; +PROPOFOL IV EMULSION 10 MG/ML 20 ML VIAL IV ONE; +SODIUM CHLORIDE 0.9% 1000ML 1,000 ML IV SCH; +SUCCINYLCHOLINE CHLORIDE 20 MG/ML 10 ML VIAL IV ONE
[2016-11-16] MEDS: BUPIVACAINE 0.5 % 5 MG/1 ML MPF 30ML VIAL ONE ×2 (08:35→08:58)
--- NOTE | 2016-11-16 08:38 | History & Physical Bridge - SC ---
H&P Re-Evaluation Bridge Note: I have examined the patient, reviewed the History & Physical and in the interval since the performance of the History & Physical I have noted the following changes of clinical significance: No changes noted
--- NOTE | 2016-11-16 09:32 | [facility] Operative Report ---
Operative Report Operative Date Nov 16, 2016. Pre-Operative Diagnosis Left breast abnormal mammogram Post-Operative Diagnosis Same as pre-op Procedure(s) Performed Left Breast Biopsy With Needle Localization Surgeon Dr. Figueroa Delivery Driver Surgeon(s) Noris PETERSON Estimated Blood Loss 5ML Findings Lt br tissue with clip Specimens A. Left breast tissue Removed from patient at 0906, sent fresh to breast [facility] Anesthesia gen/ LMA Complication(s) None Disposition Recovery Room / PACU Description of Procedure Patient was brought in the operating room placed In table in supine position. The breast was prepped and draped around the needle which had been placed the [facility]. Needle was medial. Incision is made transversely lateral to the needle toward the areola. She was carried out around the needle excising tissue anterior and superior to the needle. This was dense breast tissue with some fibrocystic changes. Tissue was sent to the breast center and the clip was within the specimen. Deep tissue was reapproximated using 20 plain catgut suture. Skin was reapproximated using subcuticular 5-0 Monocryl. Steri-Strips were applied a dressing applied and patient transferred to recovery room in stable condition. I attest to the content of the Intraoperative Record and any orders documented therein. Any exceptions are noted below.
--- NOTE | 2016-11-16 09:53 | Discharge Instructions-SurgCtr ---
Discharge Instructions Date of Service Nov 16, 2016. Visit Reason for Visit: Abnormal Mammogram, Abnormal Breast Bx Discharge Discharge Diagnosis / Problem: abnormal mammo Discharge Goals Goal(s): Decrease discomfort, Improve function, Improve disease control Activity Recommendations Activity Limitations: as noted below Lifting Limitations: gradually increase as tolerated Exercise/Sports Limitations: until after follow-up appointment May Resume Sexual Activity: when tolerated Shower/Bathe: keep incision dry (may shower over incision on Sun 11/18) Driving or Machine Use: resume 1 day after discharge SPECIAL CARE INSTRUCTIONS: * Cover incisions and change daily for comfort/drainage. * Leave steri strips in place * May use ibuprofen for pain as tolerated. * Expect some swelling and bruising. Call your doctor if: * Temperature above 101 degrees * Pain not relieved by pain medicine ordered * There is increased drainage or redness from any incision * You have any unanswered questions or concerns [phone]. FOLLOW UP VISIT: If not already scheduled, please call the office for a follow-up visit. for 2 weeks- check up- no sutures to remove OFFICE PHONE NUMBER: Dr. Figueroa Office Anesthesia . Post Anesthesia Instructions: If you have had General Anesthesia or IV Sedation: * Do not drive today. * Resume driving when surgeon permits. * Do not make important decisions or sign legal documents today. * Call surgeon for: 1. Temperature elevations greater than 101 degrees F. 2. Uncontrollable pain. 3. Excessive bleeding. 4. Persistent nausea and vomiting. 5. Medication intolerance (nausea, vomiting or rash). * For nausea and vomiting use only clear liquids such as: tea, soda, bouillon until nausea subsides, then gradually increase diet as tolerated. * If you have any concerns or questions, call your surgeon's office. If physician is unavailable and it is an emergency, call 911 or go to the nearest emergency room. . Diet Recommendations Home Diet: resume previous diet Procedures Procedures Performed: Left Breast Biopsy With Needle Localization Pending Studies Studies pending at discharge: no Medical Emergencies . Who to Call and When: Medical Emergencies: If at any time you feel your situation is an emergency, please call 911 immediately. . Non-Emergent Contact Non-Emergency issues call your: Primary Care Provider, Surgeon . . "Provider Documentation" section prepared by Lencho Figueroa. .
[2016-11-16 10:13] VITALS: TEMP 36.7
--- NOTE | 2016-11-16 10:42 | Anesthesia Progress Nt - [facility] ---
Anesthesia Post Op Note Date & Time Nov 16, 2016 at 10:42 Vital Signs Pain Intensity: 4.0 Vital Signs Past 12 Hours Date Time Temp Pulse Resp B/P (MAP) Pulse Ox O2 Delivery O2 Flow Rate FiO2 11/16/16 10:13 36.7 76 18 116/81 (93) 96 Room Air 11/16/16 10:07 131/60 11/16/16 10:03 78 17 97 11/16/16 10:03 77 17 11/16/16 10:01 117/72 11/16/16 09:58 79 22 95 11/16/16 09:58 79 22 11/16/16 09:56 114/75 11/16/16 09:53 81 19 95 11/16/16 09:53 82 19 11/16/16 09:53 36.4 81 20 112/75 97 Room Air 11/16/16 09:52 77 16 96 11/16/16 09:52 79 16 11/16/16 09:51 112/75 11/16/16 09:47 82 15 11/16/16 09:47 83 15 99 11/16/16 09:46 107/62 11/16/16 09:42 83 16 11/16/16 09:42 83 16 98 11/16/16 09:41 108/62 11/16/16 09:39 90 21 11/16/16 09:39 91 21 98 11/16/16 09:36 108/69 11/16/16 09:34 94 27 11/16/16 09:34 27 11/16/16 09:32 118/69 11/16/16 09:30 120/78 11/16/16 09:29 36.4 96 16 120/78 99 Diffusion Mask 6 11/16/16 07:30 36.5 70 16 111/75 (87) 97 Room Air Notes Mental Status: alert / awake / arousable, participated in evaluation Pt Amnestic to Procedure: Yes Nausea / Vomiting: adequately controlled Pain: adequately controlled Airway Patency, RR, SpO2: stable & adequate BP & HR: stable & adequate Hydration State: stable & adequate Anesthetic Complications: no major complications apparent
[2016-11-16 10:53] VITALS: BP 105/72; PULSE 71; O2SAT 99
--- NOTE | 2016-11-16 12:45 | MAMMOGRAPHY REPORT ---
NEEDLE LOCALIZATION LEFT BREAST: 11/16/2016 CLINICAL HISTORY: Recent stereotactic biopsy of left breast architectural distortion which yielded a radial scar. PROCEDURE DESCRIPTION: With imaging guidance, aseptic technique, and 1% lidocaine as the local anest hetic, the area of concern was localized with a 5 cm Romero 2 needle. The path of approach was medi al. The architectural distortion and associated biopsy marker clip are located anterior to the dista l portion of the wire at the level of the hook. The needle was left in place. The patient tolerated the procedure without complication. COMPARISON: Comparison is made to exams dated: 09/20/2016 stereotactic biopsy, 09/13/2016 mammogram, ultrasound, 09/05/2016 mammogram, and 09/20/2016 mammogram - [facility]. IMPRESSION: NEEDLE LOCALIZATION Mammographic-guided needle localization of architectural distortion and associated biopsy marker clip in the left breast. Ita Crooks M.D. ah/:11/16/2016 08:04:21 Attending Technologist: Prerna Cornejo, [facility] Tenterer: Vika Fernandez RT(R)(M), [facility]
--- NOTE | 2016-11-16 12:45 | MAMMOGRAPHY REPORT ---
SPECIMEN LEFT BREAST: 11/16/2016 CLINICAL HISTORY: Status post left breast surgical excision. COMPARISON: Comparison is made to exams dated: 09/20/2016 mammogram, 09/20/2016 stereotactic biopsy, mammogram, 09/13/2016 ultrasound, and 09/05/2016 mammogram - [facility]. Findings: A radiograph was performed of the left breast surgical specimen. The localized biopsy lisette er clip and the intact needle localization wire and needle are present within the specimen. Density is also seen within the specimen, which may represent the localized architectural distortion. A few calcifications are also seen within the specimen, which were shown to be located near the distortion on the needle localization images. Results were discussed with Dr. Figueroa over the telephone. IMPRESSION: SPECIMEN The imaged specimen contains the preoperatively-localized abnormality. Ita Crooks M.D. /:11/16/2016 09:26:22 Bleach Boiler Filler: Vika SIBLEY(Casey)(Jacques), [facility]
== END | disposition home or self-care (01) ==
LOC: X.SURG 07:16
PROVIDERS: ATTEND Surgery
DX: R92.8 Other abnormal and inconclusive findings on diagnostic imaging of breast (principal); R89.7 Abnormal histological findings in specimens from other organs, systems and tissues; Z86.61 Personal history of infections of the central nervous system; Z90.89 Acquired absence of other organs; J45.909 Unspecified asthma, uncomplicated

== ENCOUNTER 2017-01-13 23:41 | Emergency (ER) | payer OTHER ==
[~2017-01-13] VITALS: Ht 154.9 cm; Wt 74.6 kg
[~2017-01-13 23:41] MED LIST changes: -ACET-1256 PO; -ATROPINE SULFATE 0.1 MG/ML 5ML SYR IV PRN; -CLINDAMYCIN PHOS 150 MG/ML 2 ML VIAL IV SCH; -DEXAMETHASONE SOD INJ 4 MG/ML VIAL ONE; -EpHEDrine SULFATE INJ 50 MG/ML AMP IV PRN; -FENTANYL CITRATE INJ 50 MCG/1 ML 2 ML VIAL IV PRN; -FENTANYL CITRATE INJ 50 MCG/1 ML 2 ML VIAL ONE; -HYDROCODONE/ACETAMOPHEN 5/325MG TAB PO PRN; -IBUP-103 PO; -LACTATED RINGER'S 1000ML 1,000 ML IV SCH; -LIDOCAINE HCL 2% 2 ML VIAL (20MG/ML) ONE; -MIDAZOLAM HCL 1 MG/ML 2ML VIAL ONE; -ONDANSETRON INJ 2 MG/ML 2 ML VIAL IV PRN; -ONDANSETRON INJ 2 MG/ML 2 ML VIAL ONE; -PROMETHAZINE HCL INJ 6.25 MG in SODIUM CHLORIDE 0.9% 50ML 50 ML IV PRN; -PROPOFOL IV EMULSION 10 MG/ML 20 ML VIAL IV ONE; -SODIUM CHLORIDE 0.9% 1000ML 1,000 ML IV SCH; -SUCCINYLCHOLINE CHLORIDE 20 MG/ML 10 ML VIAL IV ONE
[2017-01-13 23:47] VITALS: TEMP 36.8; Ht 154.9 cm; Wt 74.6 kg
--- NOTE | 2017-01-14 00:50 | EMERGENCY ROOM VISIT NOTE ---
History Report prepared by Eran: Dwayne Velasquez Under the Supervision of: Dr. Marika Foster D.O. First contact with patient: 00:18 Chief Complaint: INFECTION Stated Complaint: POSS STAFF INFECTION AT BREAST BIOPSY SITE S/P2MO Nursing Triage Summary: this week was having severe h/a, chills, fever, hot flashes, muscle cramps, legs swelling up, then burning sensation and rash to left breast, same area where she had biopsy done 2 months ago History of Present Illness The patient is a 41 year old female who presents to the Emergency Room with concerns over a possible infection over the left breast. She notes that she had a surgical biopsy to remove a mass in the left breast on November 16 two months prior to this visit. She claims that she was recovering well following the procedure and did not experiencing any issues until this week when she began to experiencing a pain wrapping around her left back and around her left breast. The patient states that she began to experience fevers, chills, and headaches earlier this week as well. Today she noticed a "burning" sensation under the left breast and then noticed a rash under the left breast. The pain and burning has continued radiating into her armpit and wrapping around her back and left chest. The biopsy of the left breast tissue was benign and she does not require chemotherapy treatments. She claims that she does have a headache currently, dull and global, no change with position, no current fevers, no vision changes, no dizziness. Source of History: patient Onset: Earlier this week Position: other (Left breast ) Quality: burning Timing: worsening Associated Symptoms: + fevers, + chills, + headache Review of Systems See HPI for pertinent positives & negatives. A total of 10 systems reviewed and were otherwise negative. Past Medical & Surgical Medical Problems: (1) Asthma (2) Depression (3) Ovarian cyst Surgical Problems: (1) History of appendectomy (2) History of cardiac ablation (3) History of tonsillectomy Family History FHx: cancer FHx: heart disease FHx: hypertension Social History Smoking Status: Never Smoker Alcohol Use: none Drug Use: none Marital Status: Housing Status: lives with significant other Occupation Status: employed Current/Historical Medications Scheduled Clonazepam (Klonopin), 0.5 TAB PO HS Escitalopram Oxalate (Lexapro), 2.5 MG PO HS Lamotrigine (Lamictal), 25 MG PO HS Multivitamin (Multivitamin), 1 TAB PO QAM Scheduled PRN Acetaminophen (Tylenol), 1,000 MG PO Q6 PRN for Pain or Fever Albuterol Sulfate (Proair Respiclick), 2 PUFFS INH Q4H PRN for Shortness of Breath Clonazepam (Klonopin), 0.5 MG PO DAILY PRN for Anxiety Diphenhydramine Hcl (Benadryl Allergy), 25-50 MG PO Q8H PRN for Itching Epinephrine (Epipen), 0.3 MG IM UD PRN for ALLERGIC REACTION Ibuprofen Tab (Advil), 400 MG PO Q6 PRN for Pain or Fever Loratadine (Claritin), 10 MG PO DAILY PRN for Allergy Symptoms Potassium (Potassium), 1 TAB PO DAILY PRN for MUSCLE CRAMPING Allergies Coded Allergies: Della Nut (Unverified Allergy, Severe, STOPS BREATHING, 01/14/17) Erythromycin (Verified Allergy, Intermediate, ABDOMINAL PAIN, 01/14/17) NUTS (Verified Allergy, Intermediate, SHORTNESS OF BREATH, 01/14/17) Ciprofloxacin (Verified Allergy, Unknown, "FELT HORRIBLE, COULD NOT BREATHE", 01/14/17) Fluoxetine (Verified Allergy, Unknown, ENTIRE BODY ON FIRE, TACHY, 01/14/17 ) Physical Exam Vital Signs Date Time Temp Pulse Resp B/P (MAP) Pulse Ox O2 Delivery O2 Flow Rate FiO2 01/14/17 02:22 81 18 129/81 100 01/13/17 23:47 36.8 87 18 139/87 100 Room Air Physical Exam GENERAL: alert, well appearing, well nourished, no distress, non-toxic EYE EXAM: normal conjunctiva, PERRL and EOM's grossly intact OROPHARYNX: no exudate, no erythema, lips, buccal mucosa, and tongue normal and mucous membranes are moist NECK: supple, no nuchal rigidity, no adenopathy, non-tender LUNGS: Clear to auscultation. Normal chest wall mechanics HEART: no murmurs, S1 normal and S2 normal ABDOMEN: abdomen soft, non-tender, normo-active bowel sounds, no masses, no rebound or guarding. BACK: Back is symmetrical on inspection and there is no deformity, no midline tenderness, no CVA tenderness. SKIN: LEFT BREAST: There is a well healed scar at the ten o'clock position. There is very mild folliculitis present a the inferior aspect of both breasts medially. UPPER EXTREMITIES: upper extremities are grossly normal. LOWER EXTREMITIES: No pitting edema. NEURO EXAM: Normal sensorium, cranial nerves II-XII intact, normal speech, no weakness of arms, no weakness of legs. Medical Decision & Procedures ER Provider Diagnostic Interpretation: Radiology results have been interpreted by the radiologist and reviewed by me. SINGLE VIEW PORTABLE CHEST X-RAY: Chest X-ray shows no cardiomegaly, no effusion, no wide mediastinum, no focal infiltrate, no pulmonary edema. Laboratory Results 01/14/17 01:06 Red Blood Count 4.37, Mean Corpuscular Volume 89.2, Mean Corpuscular Hemoglobin 31.6, Mean Corpuscular Hemoglobin Concent 35.4, Mean Platelet Volume 10.3, Neutrophils (%) (Auto) 54.1, Lymphocytes (%) (Auto) 37.4, Monocytes (%) (Auto) 6.0, Eosinophils (%) (Auto) 1.7, Basophils (%) (Auto) 0.7, Neutrophils # (Auto) 4.09, Lymphocytes # (Auto) 2.82, Monocytes # (Auto) 0.45, Eosinophils # (Auto) 0.13, Basophils # (Auto) 0.05 01/14/17 01:06 Test 01/14/17 01:06 White Blood Count 7.55 K/uL (4.8-10.8) Red Blood Count 4.37 M/uL (4.2-5.4) Hemoglobin 13.8 g/dL (12.0-16.0) Hematocrit 39.0 % (37-47) Mean Corpuscular Volume 89.2 fL (80-100) Mean Corpuscular Hemoglobin 31.6 pg (25-34) Mean Corpuscular Hemoglobin Concent 35.4 g/dl (32-36) Platelet Count 251 K/uL (130-400) Mean Platelet Volume 10.3 fL (7.4-10.4) Neutrophils (%) (Auto) 54.1 % Lymphocytes (%) (Auto) 37.4 % Monocytes (%) (Auto) 6.0 % Eosinophils (%) (Auto) 1.7 % Basophils (%) (Auto) 0.7 % Neutrophils # (Auto) 4.09 K/uL (1.4-6.5) Lymphocytes # (Auto) 2.82 K/uL (1.2-3.4) Monocytes # (Auto) 0.45 K/uL (0.11-0.59) Eosinophils # (Auto) 0.13 K/uL (0-0.5) Basophils # (Auto) 0.05 K/uL (0-0.2) RDW Standard Deviation 41.8 fL (36.4-46.3) RDW Coefficient of Variation 12.8 % (11.5-14.5) Immature Granulocyte % (Auto) 0.1 % Immature Granulocyte # (Auto) 0.01 K/uL (0.00-0.02) Anion Gap 7.0 mmol/L (3-11) Est Creatinine Clear Calc Drug Dose 105.7 ml/min Estimated GFR () 127.6 Estimated GFR (Non- 110.1 BUN/Creatinine Ratio 18.1 (10-20) Lactic Acid Level 0.6 mmol/L (0.4-2.0) Calcium Level 8.5 mg/dl (8.5-10.1) Magnesium Level 2.3 mg/dl (1.8-2.4) Total Bilirubin 0.2 mg/dl (0.2-1) Aspartate Amino Transf (AST/SGOT) 19 U/L (15-37) Alanine Aminotransferase (ALT/SGPT) 36 U/L (12-78) Alkaline Phosphatase 81 U/L (45-117) Troponin I < 0.015 ng/ml (0-0.045) Total Protein 7.7 gm/dl (6.4-8.2) Albumin 3.9 gm/dl (3.4-5.0) Globulin 3.8 gm/dl (2.5-4.0) Albumin/Globulin Ratio 1.0 (0.9-2) Influenza Type A Antigen Neg for Influ A (NEG) Influenza Type B Antigen Neg for Influ B (NEG) Laboratory results per my review. ECG Indication: chest pain Rate (beats per minute): 65 Rhythm: normal sinus Findings: no ectopy, other (Normal axis, normal intervals, low voltage throughout) ED Course 0024: The patient was evaluated in room B10. A complete history and physical exam was performed. 0201: Upon reevaluation, the patient is feeling better. I discussed the findings and the treatment plan with the patient. She verbalizes agreement and understanding. The patient was discharged home. Medical Decision Differential diagnosis: Etiologies such as contact dermatitis, viral exanthem, urticaria, allergic reaction, Ocasio-Wild syndrome, toxic epidermal necrolysis, erythema multiforme, cellulitis, scabies, HSV, varicella, zoster, eczema, staph scalded skin syndrome, fungal infection, as well as others were entertained. no evidence of zoster, sjs/ten, appearance of mild folliculitis along inferior margin of breasts medically at junction with chest wall, no evidence of surrounding cellulitis. Incision from biopsy well healed. no other evidence of focal source of infection despite varied vague symptoms over the week, possible viral syndrome. pt requested cultures be sent as a precaution. Vs stable. Doubt bacteremia/sepsis. Discussed with her sx to watch/return, f/u with PCP, hydration, she verbalized understanding and was agreeable with plan. Did not feel pt warranted LP to r/o meningitis. Pt well appearing, tolerating po. No focal neuro deficits. Medication Reconcilliation Current Medication List: was personally reviewed by me Blood Pressure Screening Patient's blood pressure: Elevated blood pressure Blood pressure disposition: Elevated BP felt to be situational Impression Primary Impression: Folliculitis Additional Impression: Viral syndrome Scribe Attestation The scribe's documentation has been prepared under my direction and personally reviewed by me in its entirety. I confirm that the note above accurately reflects all work, treatment, procedures, and medical decision making performed by me. Departure Information Dispostion Home / Self-Care Referrals Cici Coronel M.D. (PCP) Forms HOME CARE DOCUMENTATION FORM, IMPORTANT VISIT INFORMATION, WORK / SCHOOL INSTRUCTIONS Patient Instructions My [facility] Additional Instructions Please continue to stay well-hydrated, you may eat normally. Please follow up with your family doctor as a precaution. If you develop any worsening symptoms or any other new concerns, please return the emergency room. Problem Qualifiers
[2017-01-14 01:15] LABS: BASO % 0.7 %; BASO ABS # 0.05 K/uL (0-0.2); COMPLETE YES; EOS % 1.7 %; IG% 0.1 %; LYMPH % 37.4 %; LYMPH ABS # 2.82 K/uL (1.2-3.4); MEAN CELL VOLUME 89.2 fL (80-100); MEAN CORPUSCULAR HEMOGLOBIN 31.6 pg (25-34); MEAN CORPUSCULAR HGB CONC 35.4 g/dl (32-36); MEAN PLATELET VOLUME 10.3 fL (7.4-10.4); NEUT % 54.1 %; PLATELET COUNT 251 K/uL (130-400); RED BLOOD COUNT 4.37 M/uL (4.2-5.4); WHITE BLOOD COUNT 7.55 K/uL (4.8-10.8)
[2017-01-14 01:33] LABS: ALT/SGPT 36 U/L (12-78); AST/SGOT 19 U/L (15-37); BLOOD UREA NITROGEN 12 mg/dl (7-18); BUN/CREATININE RATIO 18.1 (10-20); CALCIUM 8.5 mg/dl (8.5-10.1); CARBON DIOXIDE 24 mmol/L (21-32); CHLORIDE 108 mmol/L (98-107); CREATININE 0.64 mg/dl (0.60-1.20); GLUCOSE 94 mg/dl (70-99); MAGNESIUM 2.3 mg/dl (1.8-2.4); SODIUM 139 mmol/L (136-145)
[2017-01-14] MEDS ORDERED: ACET-1256 PO (01:33)
[2017-01-14] MEDS ORDERED: IBUP-103 PO (01:33)
[2017-01-14 01:38] LABS: ALKALINE PHOSPHATASE 81 U/L (45-117)
[2017-01-14 02:22] VITALS: BP 129/81; PULSE 81; O2SAT 100
--- NOTE | 2017-01-14 06:41 | DIAGNOSTIC IMAGING REPORT ---
CHEST ONE VIEW PORTABLE CLINICAL HISTORY: Chest pain. COMPARISON STUDY: Chest radiograph September 09, 2016. FINDINGS: Lung volumes are normal. No pneumothorax or pleural effusion is present. Pulmonary vascularity is normal. No consolidation is identified. Cardiomediastinal silhouette is normal. The appearance of the chest is unchanged. IMPRESSION: No acute cardiopulmonary findings. Electronically signed by: Reagan Cowan M.D. 01/14/2017 6:40 AM Dictated Date/Time: 01/14/2017 6:40 AM
== END 2017-01-14 02:22 | disposition home or self-care (01) ==
LOC: C.EDB 23:43
DX: L73.9 Follicular disorder, unspecified (principal); B34.9 Viral infection, unspecified; R51 Headache; R50.9 Fever, unspecified; F32.9 Major depressive disorder, single episode, unspecified; J45.909 Unspecified asthma, uncomplicated; Z79.899 Other long term (current) drug therapy; Z87.42 Personal history of other diseases of the female genital tract; Z82.49 Family history of ischemic heart disease and other diseases of the circulatory system

== ENCOUNTER 2017-04-23 22:52 | Emergency (ER) | payer OTHER ==
[~2017-04-23] VITALS: Ht 154.9 cm; Wt 76.0 kg
[~2017-04-23 22:52] MED LIST changes: +ACET-1256 PO; -HYDR-5688 PO; +IBUP-103 PO
[2017-04-23 22:56] VITALS: TEMP 37; Ht 154.9 cm; Wt 76.0 kg
[2017-04-23] MEDS ORDERED: IBUPROFEN 600 MG TAB PO STA (23:03)
--- NOTE | 2017-04-23 23:15 | EMERGENCY ROOM VISIT NOTE ---
History Report prepared by Eran: Zamzam Heath Under the Supervision of: Dr. Gadiel Abdullahi M.D. First contact with patient: 23:01 Chief Complaint: ILLNESS Stated Complaint: 17:30 SUDDEN ONSET OF FLU SYMPTOMS, SORE THROAT History of Present Illness The patient is a 41 year old female who presents to the Emergency Room with complaints of a constant illness beginning 6 hours ago. The patient states that she had sudden onset of flu-like symptoms beginning 6 hours ago. She reports that she developed a sore throat and when she looked at it she noticed white pustules. She notes that she has been having ear aches, headaches, fever, chills , body aches, nausea, cough, and her heart is racing. The patient denies any vomiting and urinary symptoms. She notes that she has been around a lot of people lately. She reports that she took Klonopin and it did relieve her heart rate some. She also took Tylenol prior to arrival. Source of History: patient Onset: 6 hours ago Position: other (global) Quality: other (flu-like symptoms) Timing: constant Associated Symptoms: + fevers, + chills, + headache, + sorethroat, + cough, + nausea, + diarrhea, No vomiting, No urinary symptoms Note: She notes that she has been having ear aches, body aches, and her heart is racing. Review of Systems See HPI for pertinent positives & negatives. A total of 10 systems reviewed and were otherwise negative. Past Medical & Surgical Medical Problems: (1) Asthma (2) Depression (3) Ovarian cyst Surgical Problems: (1) History of appendectomy (2) History of cardiac ablation (3) History of tonsillectomy Family History FHx: cancer FHx: heart disease FHx: hypertension Social History Smoking Status: Never Smoker Alcohol Use: none Drug Use: none Marital Status: Housing Status: lives with significant other Occupation Status: employed Current/Historical Medications Scheduled Clonazepam (Klonopin), 1.5 TABS PO HS Oseltamivir Phosphate (Tamiflu), 1 CAP PO BID Scheduled PRN Acetaminophen (Tylenol), 1,000 MG PO Q6 PRN for Pain or Fever Albuterol Sulfate (Proair Respiclick), 2 PUFFS INH Q4H PRN for Shortness of Breath Clonazepam (Klonopin), 0.5 MG PO DAILY PRN for Anxiety Diphenhydramine Hcl (Benadryl Allergy), 25-50 MG PO Q8H PRN for Itching Epinephrine (Epipen), 0.3 MG IM UD PRN for ALLERGIC REACTION Loratadine (Claritin), 10 MG PO DAILY PRN for Allergy Symptoms Allergies Coded Allergies: Della Nut (Unverified Allergy, Severe, STOPS BREATHING, 04/23/17) Erythromycin (Verified Allergy, Intermediate, ABDOMINAL PAIN, 04/23/17) NUTS (Verified Allergy, Intermediate, SHORTNESS OF BREATH, 04/23/17) Ciprofloxacin (Verified Allergy, Unknown, "FELT HORRIBLE, COULD NOT BREATHE", 04/23/17) Fluoxetine (Verified Allergy, Unknown, ENTIRE BODY ON FIRE, TACHY, ) Physical Exam Vital Signs Date Time Temp Pulse Resp B/P (MAP) Pulse Ox O2 Delivery O2 Flow Rate FiO2 04/23/17 22:56 37.0 112 20 119/80 96 Room Air Physical Exam GENERAL: Patient is in no acute distress. HEENT: No acute trauma, normocephalic atraumatic, mucous membranes moist, no nasal congestion, no scleral icterus. Mild throat erythema, no exudate. TMs clear bilaterally. NECK: No stridor, mild bilateral anterior cervical adenopathy, no meningismus, trachea is midline. LUNGS: Clear to auscultation bilaterally, no wheeze, no rhonchi, breath sounds equal. HEART: Mildly tachycardic with a regular rhythm no murmurs. ABDOMEN: Soft, nontender, bowel sounds positive, no hernias, no peritonitis. EXTREMITIES: No cyanosis or edema, full range of motion of all the joints without pain or difficulty, no signs for acute trauma. NEUROLOGIC: Oriented x 3, no acute motor or sensory deficits, no focal weakness. SKIN: No rash, no jaundice, no diaphoresis. Medical Decision & Procedures Laboratory Results Laboratory results reviewed by me. Urine dip negative for infection or blood. Rapid strep testing negative. Medications Administered Medications (Trade) Dose Ordered Sig/Dawood Route Start Time Stop Time Status Last Admin Dose Admin Ibuprofen (Motrin Tab) 600 mg NOW STAT PO 04/23/17 23:03 04/23/17 23:09 DC 04/23/17 23:28 600 MG Oseltamivir Phosphate (Tamiflu Cap) 75 mg NOW STAT PO 04/23/17 23:22 04/23/17 23:23 DC 04/23/17 23:27 75 MG Ondansetron HCl (Zofran Odt) 4 mg NOW STAT PO 04/23/17 23:29 04/23/17 23:30 DC 04/23/17 23:29 4 MG Ondansetron HCl (ZOFRAN ODT 4MG Home Pack) 1 homepack UD ONCE PO 04/23/17 23:30 04/23/17 23:31 DC 04/23/17 23:30 1 HOMEPACK ED Course 2301: The patient was evaluated in room B11. A complete history and physical exam was performed. 2303: Ibuprofen 600mg PO. 2322: Tamiflu Cap 75mg PO. 2329: Zofran Odt 4mg PO. 2330: Ondansetron HCl 1 homepack PO. 2334: Reevaluated the patient. Discussed results and discharge instructions: She verbalized understanding and agreement. The patient is ready for discharge. Medical Decision The patient is a 41 year old female who presents to the ED with complaints of flu-like symptoms. Differential diagnoses considered include flu-like illness, influenza, strep pharyngitis, URI, pneumonia. The patient presents with the sudden onset of flulike symptoms. On exam, there was no meningismus. She was not toxic. Lungs were clear. There was no otitis media. Strep testing was negative. Urine dip did not show infection. The patient likely has influenza or some other flulike illness. As she has presented quickly, I think Tamiflu would be a reasonable option. She was given a dose here orally. She also received a dose of oral Motrin and was given a dose of oral Zofran. The patient will be discharged on Tamiflu. [id number] Motrin or Tylenol for fever or aches. Rest and hydration were encouraged. She was given a few Zofran to take with her for nausea-these can be used as needed. If worsening, she will return for reassessment. Medication Reconcilliation Current Medication List: was personally reviewed by me Blood Pressure Screening Patient's blood pressure: Normal blood pressure Blood pressure disposition: Did not require urgent referral Impression Primary Impression: Flu-like symptoms Scribe Attestation The scribe's documentation has been prepared under my direction and personally reviewed by me in its entirety. I confirm that the note above accurately reflects all work, treatment, procedures, and medical decision making performed by me. Departure Information Dispostion Home / Self-Care Prescriptions Oseltamivir Phosphate (Tamiflu) 75 Mg Cap 1 CAP PO BID for 5 Days, #10 CAP Prov: Gadiel Abdullahi M.D. 04/23/17 Referrals Cici Coronel M.D. (PCP) Forms HOME CARE DOCUMENTATION FORM, IMPORTANT VISIT INFORMATION, WORK / SCHOOL INSTRUCTIONS Patient Instructions My [facility] Additional Instructions tamiflu as directed fluids rest motrin and or tylenol for fever and aches see delfino mueller for a recheck this week return for worsening symptoms strep test and urine testing were ok today
[2017-04-23] MEDS ORDERED: OSELTAMIVIR PHOSPHATE 75 MG CAP PO STA (23:22)
[2017-04-23] MEDS ORDERED: NF406 PO (23:26)
[2017-04-23] MEDS ORDERED: ONDANSETRON 4MG OD TAB PO STA (23:29)
[2017-04-23] MEDS ORDERED: ONDANSETRON HOME PACK 4MG OD TAB PO ONE (23:30)
[2017-04-23 23:37] VITALS: BP 114/86; PULSE 100; O2SAT 96
== END 2017-04-23 23:38 | disposition home or self-care (01) ==
LOC: C.EDB 22:53
DX: R51 Headache (principal); H92.09 Otalgia, unspecified ear; R11.0 Nausea; R05 Cough; J45.909 Unspecified asthma, uncomplicated; F32.9 Major depressive disorder, single episode, unspecified; Z80.9 Family history of malignant neoplasm, unspecified; Z82.49 Family history of ischemic heart disease and other diseases of the circulatory system; R50.9 Fever, unspecified

== ENCOUNTER 2017-04-27 14:02 | Emergency (ER) | payer OTHER ==
[~2017-04-27] VITALS: Ht 154.9 cm; Wt 74.6 kg
[~2017-04-27 14:02] MED LIST changes: -ESCI1TAB6 PO; -IBUP-103 PO; -LAMO25TA PO; -MULT-506 PO; +NF406 PO; -POTA99TA PO
[2017-04-27 14:04] VITALS: Ht 154.9 cm; Wt 74.6 kg
[2017-04-27] MEDS ORDERED: DiphenhydrAMINE HCL 50 MG/ML VIAL IV STA (14:16)
[2017-04-27] MEDS ORDERED: METOCLOPRAMIDE HCL INJ 5 MG/ML 2 ML VIAL IV STA (14:16)
[2017-04-27] MEDS ORDERED: SODIUM CHLORIDE 0.9% 1000ML 2,000 ML IV STA (14:16)
[2017-04-27] MEDS ORDERED: KETOROLAC TROMETHAMINE 30 MG/ML VIAL IV STA (14:16)
--- NOTE | 2017-04-27 14:42 | EMERGENCY ROOM VISIT NOTE ---
History Report prepared by Eran: Maddie Lancaster Under the Supervision of: Dr. Lb Kay M.D. First contact with patient: 14:08 Chief Complaint: FLU LIKE SX Stated Complaint: FLU IS WORSE,VOMITING,PASSING OUT,HEADACHE History of Present Illness The patient is a 41 year old female who presents to the Emergency Room with complaints of persistent vomiting for two days [employer]. She notes a headache, fever , chills, diaphoresis, nausea, diarrhea, loss of appetite, near syncope, fatigue , body aches, loss of sleep, neck pain, ear pain, sore throat, swollen neck glands, dehydration, and productive cough with green sputum. She currently rates her pain an 8/10 in severity. She notes her urine was orange in color. She was recently seen in the ED on April 23, 2017 for flu-like symptoms, though she was not vomiting at that time. She was given a strep test, though it was negative. She was recently seen by her PCP yesterday. She was prescribed Tamiflu and Zofran, though she has not been able to keep the medications down. She notes that she was at a [employer] with children 8 days ago, though her flu like symptoms began four days ago. She notes her last dose of Children' s Tylenol was five hours ago. Pt denies leg pain, leg swelling, joint pain, chest pain, breathing difficulties, abdominal pain, back pain, melena, hematochezia, urinary symptoms, numbness, weakness, or other complaints. 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 Review of Systems See HPI for pertinent positives and negatives. A total of ten systems were reviewed and were otherwise negative. Past Medical & Surgical Medical Problems: (1) Asthma (2) Depression (3) Ovarian cyst Surgical Problems: (1) History of appendectomy (2) History of cardiac ablation (3) History of tonsillectomy Family History FHx: cancer FHx: heart disease FHx: hypertension Social History Smoking Status: Never Smoker Alcohol Use: none Drug Use: none Marital Status: Housing Status: lives with significant other Occupation Status: employed Current/Historical Medications Scheduled Clonazepam (Klonopin), 1.5 TABS PO HS Ondasetron Odt (Zofran Odt), 4 MG SL Q6H Oseltamivir Phosphate (Tamiflu), 1 CAP PO BID Scheduled PRN Acetaminophen (Tylenol), 1,000 MG PO Q6 PRN for Pain or Fever Albuterol Sulfate (Proair Respiclick), 2 PUFFS INH Q4H PRN for Shortness of Breath Clonazepam (Klonopin), 0.5 MG PO DAILY PRN for Anxiety Diphenhydramine Hcl (Benadryl Allergy), 25-50 MG PO Q8H PRN for Itching Epinephrine (Epipen), 0.3 MG IM UD PRN for ALLERGIC REACTION Loratadine (Claritin), 10 MG PO DAILY PRN for Allergy Symptoms Metoclopramide (Reglan), 10 MG PO Q6H PRN for Nausea Ondansetron Hcl (Zofran), 4 MG PO DAILY PRN for Nausea Allergies Coded Allergies: Della Nut (Unverified Allergy, Severe, STOPS BREATHING, 04/27/17) Erythromycin (Verified Allergy, Intermediate, ABDOMINAL PAIN, 04/27/17) NUTS (Verified Allergy, Intermediate, SHORTNESS OF BREATH, 04/27/17) Ciprofloxacin (Verified Allergy, Unknown, "FELT HORRIBLE, COULD NOT BREATHE", 04/27/17) Fluoxetine (Verified Allergy, Unknown, ENTIRE BODY ON FIRE, TACHY, ) Physical Exam Vital Signs Date Time Temp Pulse Resp B/P (MAP) Pulse Ox O2 Delivery O2 Flow Rate FiO2 04/27/17 18:29 37.0 83 23 118/79 99 04/27/17 18:06 83 23 99 Room Air 04/27/17 18:01 118/79 04/27/17 17:36 88 24 04/27/17 17:31 87 18 105/85 100 Room Air 04/27/17 17:07 87 18 100 Room Air 04/27/17 17:01 118/76 04/27/17 16:31 123/86 04/27/17 16:07 82 16 04/27/17 16:02 19 04/27/17 16:01 128/86 04/27/17 15:32 105/71 04/27/17 15:05 91 04/27/17 15:01 113/76 04/27/17 14:55 91 19 113/84 100 Room Air 04/27/17 14:04 37.0 88 18 117/82 94 Room Air Physical Exam GENERAL: Awake, alert, uncomfortable and mildly ill appearing, no distress HEAD: Normocephalic, atraumatic. No edema. EYES: Normal conjunctiva. Sclera non-icteric. EARS: Right TM normal. Left TM normal. NOSE: Normal. OROPHARYNX: Lips, tongue, and mucosa unremarkable except mildly dry lips. Posterior mild erythema. No exudate. NECK: Supple. No nuchal rigidity. FROM. Negative jolt accentuation. Mild anterior adenopathy. Negative jolt accentuation test. RESPIRATORY: CTA bilaterally. No wheezes rales or rhonchi. CARDIAC: Regular rate, normal rhythm. ABDOMEN: Soft, non distended. No tenderness to palpation. NEURO: Normal sensorium. SKIN: No rash or jaundice noted MUSCULOSKELETAL: No edema. Medical Decision & Procedures ER Provider Diagnostic Interpretation: Radiology results as stated below per my review and radiologist interpretation: CHEST ONE VIEW PORTABLE HISTORY: flu like symptoms COMPARISON: Chest 01/14/2017. FINDINGS: The lungs are clear. Cardiac silhouette is normal in size. No pleural effusions. No pneumothorax. IMPRESSION: No acute process. Electronically signed by: Neo Martínez M.D. 04/27/2017 2:49 PM Dictated Date/Time: 04/27/2017 2:47 PM Laboratory Results 04/27/17 14:35 Red Blood Count 4.29, Mean Corpuscular Volume 90.7, Mean Corpuscular Hemoglobin 30.8, Mean Corpuscular Hemoglobin Concent 33.9, Mean Platelet Volume 10.6, Neutrophils (%) (Auto) 72.0, Lymphocytes (%) (Auto) 18.3, Monocytes (%) (Auto) 7.2, Eosinophils (%) (Auto) 1.8, Basophils (%) (Auto) 0.4, Neutrophils # (Auto) 8.64, Lymphocytes # (Auto) 2.20, Monocytes # (Auto) 0.86, Eosinophils # (Auto) 0.22, Basophils # (Auto) 0.05 04/27/17 14:35 Test 04/27/17 14:35 04/27/17 15:30 White Blood Count 12.00 K/uL (4.8-10.8) Red Blood Count 4.29 M/uL (4.2-5.4) Hemoglobin 13.2 g/dL (12.0-16.0) Hematocrit 38.9 % (37-47) Mean Corpuscular Volume 90.7 fL (80-100) Mean Corpuscular Hemoglobin 30.8 pg (25-34) Mean Corpuscular Hemoglobin Concent 33.9 g/dl (32-36) Platelet Count 254 K/uL (130-400) Mean Platelet Volume 10.6 fL (7.4-10.4) Neutrophils (%) (Auto) 72.0 % Lymphocytes (%) (Auto) 18.3 % Monocytes (%) (Auto) 7.2 % Eosinophils (%) (Auto) 1.8 % Basophils (%) (Auto) 0.4 % Neutrophils # (Auto) 8.64 K/uL (1.4-6.5) Lymphocytes # (Auto) 2.20 K/uL (1.2-3.4) Monocytes # (Auto) 0.86 K/uL (0.11-0.59) Eosinophils # (Auto) 0.22 K/uL (0-0.5) Basophils # (Auto) 0.05 K/uL (0-0.2) RDW Standard Deviation 44.8 fL (36.4-46.3) RDW Coefficient of Variation 13.6 % (11.5-14.5) Immature Granulocyte % (Auto) 0.3 % Immature Granulocyte # (Auto) 0.03 K/uL (0.00-0.02) Anion Gap 6.0 mmol/L (3-11) Est Creatinine Clear Calc Drug Dose 132.7 ml/min Estimated GFR () 137.5 Estimated GFR (Non- 118.6 BUN/Creatinine Ratio 7.1 (10-20) Calcium Level 8.8 mg/dl (8.5-10.1) Total Bilirubin 0.3 mg/dl (0.2-1) Direct Bilirubin 0.1 mg/dl (0-0.2) Aspartate Amino Transf (AST/SGOT) 65 U/L (15-37) Alanine Aminotransferase (ALT/SGPT) 235 U/L (12-78) Alkaline Phosphatase 141 U/L (45-117) Total Protein 7.8 gm/dl (6.4-8.2) Albumin 3.4 gm/dl (3.4-5.0) Lipase 98 U/L (73-393) Human Chorionic Gonadotropin, Qual NEG (NEG) Hepatitis B Surface Antigen NEG (NEG) Hepatitis C Antibody NEG (NEG) Monoscreen NEG (NEG) Urine Color YELLOW Urine Appearance CLEAR (CLEAR) Urine pH 6.5 (4.5-7.5) Urine Specific [place] 1.008 (1.000-1.030) Urine Protein NEG (NEG) Urine Glucose (UA) NEG (NEG) Urine Ketones NEG (NEG) Urine Occult Blood NEG (NEG) Urine Nitrite NEG (NEG) Urine Bilirubin NEG (NEG) Urine Urobilinogen NEG (NEG) Urine Leukocyte Esterase NEG (NEG) Laboratory results reviewed by me Medications Administered Medications (Trade) Dose Ordered Sig/Dawood Route Start Time Stop Time Status Last Admin Dose Admin Sodium Chloride 2,000 ml @ 999 mls/hr Q2H1M STAT IV 04/27/17 14:16 04/27/17 16:16 DC 04/27/17 14:46 999 MLS/HR Metoclopramide HCl (Reglan Inj) 10 mg NOW STAT IV 04/27/17 14:16 04/27/17 14:21 DC 04/27/17 14:46 10 MG Diphenhydramine HCl (Benadryl Inj) 25 mg NOW STAT IV 04/27/17 14:16 04/27/17 14:21 DC 04/27/17 14:46 25 MG Ketorolac Tromethamine (Toradol Inj) 10 mg NOW STAT IV 04/27/17 14:16 04/27/17 14:21 DC 04/27/17 14:47 10 MG Tramadol HCl (Ultram Home Pack) 1 homepack UD ONCE PO 04/27/17 17:45 04/27/17 17:46 DC 04/27/17 17:53 1 HOMEPACK Ondansetron HCl (ZOFRAN ODT 4MG Home Pack) 1 homepack UD ONCE PO 04/27/17 17:45 04/27/17 17:46 DC 04/27/17 17:53 1 HOMEPACK Metoclopramide HCl (Reglan Tab) 20 mg NOW ONCE PO 04/27/17 17:45 04/27/17 17:46 DC 04/27/17 17:53 20 MG ED Course 1410: The patient was evaluated in room C7. A complete history and physical exam was performed. 1416: Ordered Toradol 10 mg IV, Benadryl 25 mg IV, Reglan 10 mg IV, and Sodium Chloride 2,000 ml @ 999 mls/hr IV 1530: I reassessed the patient at this time. She is feeling better and resting comfortably. 1638: I reassessed the patient at this time. She is feeling significantly better and resting comfortably. 1723: I reassessed the patient at this time. She is feeling better and resting comfortably. I discussed the results and treatment plan with the patient. I answered all pertaining questions that she had. She expressed understanding and verbalized agreement. The patient will be discharged home. 1745: Ordered Reglan 20 mg PO, Ondansetron HCl 1 homepack PO, and Tramadol HCl 1 homepack PO Medical Decision Triage Nursing notes reviewed. The patient's presentation and history were concerning for vomiting and flu like symptoms. Etiologies such as flulike illness, gastroenteritis, food borne illness, infections, pneumonia, sinusitis, meningitis, obstruction, pancreatitis, appendicitis, biliary pathology, toxicologic as well as others were entertained. The patient was evaluated. She seems dehydrated and notes that she feels very dehydrated. She has not been able to keep down her medications very well although she did the Tamiflu this afternoon. She had an IV established. She was given 2 L of normal saline, Reglan, Benadryl, and Toradol. She had a slight leukocytosis on CBC. Her chemistry panel revealed elevated LFTs. She had a benign abdomen on initial evaluation. She denied any alcohol and excessive Tylenol use. She is only been using Tylenol at the recommended doses a few times per day. The patient was reassessed and after the above medications and saline hydration she was feeling better. The hydration was continued. She was given an oral challenge and did very well with this. On reassessment her symptoms nearly resolved and clinically she looked well. She was sitting up. She had stable vital signs and was not feeling lightheaded or n experiencing ear syncope. She was able to ambulate to the bathroom several times. Urinalysis and tests are negative. [place] screen and hepatitis screens were negative. The patient's chest x-ray was unremarkable. Overall her presentation seems to be most consistent with a viral like syndrome. She does not have any abdominal pain. She did complain of headache but that improved remarkably with hydration and treatment of her nausea and vomiting. She did not have any meningeal findings and was afebrile. I did discuss lumbar puncture and at this point in time we elected to hold. If she worsens in any way or her symptoms persist she will be coming back to the emergency department for reevaluation. She denied any significant sinus symptoms to warrant coverage for sinusitis. Given the symptoms CT imaging was felt to be unnecessary. The patient and her significant other felt comfortable with conservative management. She notes that her stomach sometimes gets upset with ibuprofen and Aleve. She will take this with food and hasn't will take a Zantac if necessary. She was told to refrain from Tylenol. She will refrain from any alcohol. The patient states that she does not consume alcohol. She will need to have follow-up for LFTs as well as a recheck. She agreed. The patient notes having breakthrough nausea and vomiting with the Zofran. She was given some additional ODT's but also was given Reglan home packs as well as prescriptions if needed. She did request to have something for her aches and pains since she could not have Tylenol. I did discuss use of tramadol sparingly. She was given just a home pack and no prescription. If her symptoms persist or worsen despite use of this medication and the above she will come back to the emergency department tomorrow for reevaluation. By the evaluation outlined above other emergent etiologies such as those listed in the differential, as well as others, were deemed relatively unlikely. The patient was educated about the findings as listed above. All questions were answered and the patient was pleased with the treatment. Return instructions were outlined and the patient was discharged in stable condition. The patient was referred to [facility] for follow-up for a recheck of the current condition. Medication Reconcilliation Current Medication List: was personally reviewed by me Blood Pressure Screening Patient's blood pressure: Normal blood pressure Impression Primary Impression: Vomiting Additional Impressions: Elevated LFTs Flu-like symptoms Headache Scribe Attestation The scribe's documentation has been prepared under my direction and personally reviewed by me in its entirety. I confirm that the note above accurately reflects all work, treatment, procedures, and medical decision making performed by me. Departure Information Dispostion Home / Self-Care Prescriptions Ondasetron Odt (ZOFRAN ODT) 4 Mg Tab 4 MG SL Q6H for Nausea, #8 TAB Prov: Lb Kay MD 04/27/17 Metoclopramide (Reglan) 10 Mg Tab 10 MG PO Q6H Y for Nausea, #8 TAB Prov: Lb Kay MD 04/27/17 Referrals Cici Coronel M.D. (PCP) Forms HOME CARE DOCUMENTATION FORM, IMPORTANT VISIT INFORMATION Patient Instructions My [facility] Additional Instructions Avoid alcohol and any Tylenol containing products. Follow-up with your primary physician on Saturday. A recheck of your liver function tests are necessary. Zofran 4 mg oral dissolving tablets: take one tablet and allow it to melt in your mouth every 4 hours as needed for nausea. Reglan 5 mg tabs, take 2 tablets every six hours for nausea. A prescription was sent to your pharmacy for 10 mg tablets. Just take one every 6 hours from the pharmacy's prescription bottle. Ibuprofen(Motrin, Advil) may be used for fever or pain. Use 600mg every six hours as needed. Take with food. Avoid using more than 2400mg in a 24 hour period. Do not use 2400mg per day for more than three consecutive days without physician direction. Prolonged inappropriate use can lead to stomach upset or ulcers. If this upsets her stomach, take with a Zantac 150mg [id number] twice a day. Tramadol 50 mg: Take 1 pills every 6 hours as needed for pain. Avoid additional Acetaminophen/Tylenol, alcohol, operating machinery or dangerous equipment, working on ladders or roofs, DRIVING, or situations where being under the influence may be dangerous. It is recommended to use a stool softener such as Colace, 100mg twice daily while taking this medication to avoid constipation. Rest and drink plenty of fluids. Controlling your fever with Ibuprofen as above will make you feel better. Return to the ER for severe headache, neck stiffness, chest pain, difficulty breathing, fevers, vomiting, worsening of your condition, or as needed. Follow up with your primary physician this Saturday for a recheck of your current condition. Problem Qualifiers
[2017-04-27 14:46] LABS: BASO % 0.4 %; BASO ABS # 0.05 K/uL (0-0.2); COMPLETE YES; EOS % 1.8 %; HEMATOCRIT 38.9 % (37-47); IG% 0.3 %; LYMPH % 18.3 %; MEAN CELL VOLUME 90.7 fL (80-100); MEAN CORPUSCULAR HEMOGLOBIN 30.8 pg (25-34); MEAN CORPUSCULAR HGB CONC 33.9 g/dl (32-36); MEAN PLATELET VOLUME 10.6 fL (7.4-10.4); MONO % 7.2 %; PLATELET COUNT 254 K/uL (130-400); RED BLOOD COUNT 4.29 M/uL (4.2-5.4)
--- NOTE | 2017-04-27 14:50 | DIAGNOSTIC IMAGING REPORT ---
CHEST ONE VIEW PORTABLE HISTORY: flu like symptoms COMPARISON: Chest 01/14/2017. FINDINGS: The lungs are clear. Cardiac silhouette is normal in size. No pleural effusions. No pneumothorax. IMPRESSION: No acute process. Electronically signed by: Neo Martínez M.D. 04/27/2017 2:49 PM Dictated Date/Time: 04/27/2017 2:47 PM
[2017-04-27 15:02] LABS: BUN/CREATININE RATIO 7.1 (10-20); CALCIUM 8.8 mg/dl (8.5-10.1); CREATININE 0.51 mg/dl (0.60-1.20); POTASSIUM 3.7 mmol/L (3.5-5.1)
[2017-04-27 15:05] LABS: PREG INTERNAL NEGATIVE QC NEG CLEAR BACKGROUND; PREG INTERNAL POSITIVE QC POS CONTROL LINE
[2017-04-27] MEDS ORDERED: ONDA4TAB46 PO (15:33)
[2017-04-27 16:04] LABS: URINE APPEARANCE CLEAR (CLEAR); URINE BILIRUBIN NEG (NEG); URINE COLOR YELLOW; URINE NITRITE NEG (NEG); URINE PH 6.5 (4.5-7.5); URINE SPECIFIC GRAVITY 1.008 (1.000-1.030); UROBILINOGEN NEG (NEG)
[2017-04-27 16:08] LABS: MANUAL MICROSCOPIC REQUIRED? NO; REVIEW REQ? NO
[2017-04-27] MEDS ORDERED: TRAMADOL HCL 50 MG HOME PACK PO ONE (17:45)
[2017-04-27] MEDS ORDERED: METOCLOPRAMIDE HCL 5 MG TAB PO ONE (17:45)
[2017-04-27] MEDS ORDERED: ONDANSETRON HOME PACK 4MG OD TAB PO ONE (17:45)
[2017-04-27] MEDS ORDERED: EMPTY 8 DRAM VIAL ONE (17:46)
[2017-04-27] MEDS ORDERED: ONDA4TAB10 SL (18:13)
[2017-04-27] MEDS ORDERED: METO-157 PO (18:13)
[2017-04-27 18:29] VITALS: BP 118/79; PULSE 83; TEMP 37; O2SAT 99
== END 2017-04-27 18:29 | disposition home or self-care (01) ==
LOC: C.EDB 14:04 → C.EDC 18:29
DX: R11.2 Nausea with vomiting, unspecified (principal); R79.89 Other specified abnormal findings of blood chemistry; R51 Headache; J45.909 Unspecified asthma, uncomplicated; Z80.9 Family history of malignant neoplasm, unspecified; Z82.49 Family history of ischemic heart disease and other diseases of the circulatory system

== ENCOUNTER → 2017-05-13 | Outpatient (CLI) | payer OTHER ==
[~2017-05-13] MED LIST changes: +METO-157 PO; -NF406 PO; +ONDA4TAB10 SL; +ONDA4TAB46 PO
--- NOTE | 2017-05-13 15:10 | MAMMOGRAPHY REPORT ---
UNILATERAL LEFT DIGITAL DIAGNOSTIC MAMMOGRAM TOMOSYNTHESIS WITH CAD: 05/13/2017 CLINICAL HISTORY: 41-year-old woman presents for follow-up in the left breast. She previously had a stereotactic guided biopsy in the left breast which yielded a radial scar status post surgical excisi onal biopsy. No DCIS or evidence of malignancy was identified at final pathology. TECHNIQUE: Left breast tomosynthesis in addition to standard 2D mammography was performed. Current st udy was also evaluated with a Computer Aided Detection (CAD) system. COMPARISON: Comparison is made to exams dated: 11/16/2016 specimen, 11/16/2016 localization, 09/20/2016 mammogram, 09/20/2016 stereotactic biopsy, 09/13/2016 mammogram, and 09/05/2016 mammogram - [facility]. BREAST COMPOSITION: The tissue of the left breast is heterogeneously dense, which may obscure small masses. FINDINGS: There is expected architectural distortion in the slightly medial, middle one third of the left breast, 4.3 cm distal to the nipple, in the area of previous biopsy proven radial scar which has been excised. The current area of distortion is expected although the overall appearance of the lef t breast is somewhat similar dating back to at least 06/25/2014. The other possible areas of archite ctural distortion in both the lateral and medial left breast are again seen and appear similar to kasie or tomosynthesis images, although I am unsure if they represent true distortion or simply the patient 's glandular pattern. No obvious new mass, suspicious area of distortion, asymmetry or new suspiciou s microcalcifications are identified. Given the subtle nature of the distortion seen only on the mona osynthesis images and the patient cannot undergo MRI, recommend another close follow-up left diagnost ic tomosynthesis mammogram and possible ultrasound in 6 months to ensure longer stability after surge ry. Annual right mammography will also be due at that time. IMPRESSION: ACR-BI-RADS CATEGORY 3: PROBABLY BENIGN Stable appearance of the left breast on 2-D and tomosynthesis mammograms, without definite evidence o f malignancy. Another six-month follow-up left tomosynthesis mammogram and possible ultrasound is re commended to ensure longer stability, particularly given that there are other questionable areas of d istortion in the breast versus the patient's baseline glandular pattern. Annual right mammography wi ll also be due at that time. These results and recommendations were discussed with the patient at the time of the exam. She tenta tively scheduled a follow-up appointment prior to leaving our department. Approximately 10% of breast cancers are not detected with mammography. A negative mammographic report should not delay biopsy if a clinically suggestive mass is present. Michelle Gordon M.D. ay/:05/13/2017 10:37:28 Estimator: Prerna Cornejo, [facility] letter sent: Follow Up Recommended 3 BI-RADS Code: ACR-BI-RADS Category 3: Probably Benign
== END | disposition home or self-care (01) ==
LOC: C.MAMM 09:33
PROVIDERS: ATTEND Family Medicine
DX: R92.8 Other abnormal and inconclusive findings on diagnostic imaging of breast (principal)

== ENCOUNTER 2017-08-06 17:15 | Emergency (ER) | payer OTHER ==
[~2017-08-06] VITALS: Ht 154.9 cm; Wt 73.0 kg
[~2017-08-06 17:15] MED LIST changes: -ALBU18002 INH; -CLR10 PO; -DIPH25CA65 PO; -EPP3/2 IM
[2017-08-06 17:32] VITALS: TEMP 36.8; Ht 154.9 cm; Wt 73.0 kg
--- NOTE | 2017-08-06 19:14 | EMERGENCY ROOM VISIT NOTE ---
History Report prepared by Eran: Howie Owen Under the Supervision of: Dr. Alvarez Vera M.D. First contact with patient: 18:56 Chief Complaint: OTHER COMPLAINT Stated Complaint: LOW BLOOD PRESSURE, DROPPING, DIZZY, HEADACHE History of Present Illness The patient is a 42 year old white female with a past medical history of asthma , ovarian cyst, elevated LFTs, depression who presents to the ED with a cc of waxing and waning hypotension beginning a couple weeks ago. Positive cough, dizziness, lightheadedness, lip and fingertip tingling, nausea, headache when standing or sitting up. Negative urinary symptoms, bowel movement problems. She states that she had bronchitis 2 weeks ago, and was put on antibiotics and a steroid inhaler. The patient notes that ever since she started the inhaler, her blood pressure would get really low, and she would feel "faint". The patient says that her heart rate would also go up and she could not stand or sit up or else she would get a headache. She went back to her doctor, as she kept feeling "faint", and was tested and told that her blood pressure was really low, and was recommended to stop the inhaler and to increased her salt and Gatorade intake. The patient states that she started to feel better, but this morning her "heart started struggling" again. She adds that when laying down her headache has gotten better today. She says that she takes Klonopin for her anxiety. She states that she has a history of some thyroid-related issues, but has not had them for a while. The patient says that she did get her flu shot this season. Source of History: patient Onset: A couple weeks ago Position: other (global) Quality: other (hypotension) Timing: waxes/wanes Modifying Factors (Worsening): other (positional changes) Associated Symptoms: + headache, + cough, + nausea, No urinary symptoms (or bowel movement problems) Note: Positive dizziness, lightheadedness, lip and fingertip tingling. Review of Systems See HPI for pertinent positives and negatives. A total of ten systems were reviewed and were otherwise negative. Past Medical & Surgical Medical Problems: (1) Asthma (2) Depression (3) Ovarian cyst Surgical Problems: (1) History of appendectomy (2) History of cardiac ablation (3) History of tonsillectomy Family History FHx: cancer FHx: heart disease FHx: hypertension Social History Smoking Status: Never Smoker Alcohol Use: none Drug Use: none Marital Status: Housing Status: lives with significant other Occupation Status: employed Current/Historical Medications Scheduled Clonazepam (Klonopin), 0.5 MG PO HS Scheduled PRN Acetaminophen (Tylenol), 1,000 MG PO Q6H PRN for Pain or Fever Albuterol Sulfate (Proair Respiclick), 2 PUFFS INH Q4H PRN for Shortness of Breath Clonazepam (Klonopin), 0.25 MG PO DAILY PRN for Anxiety Diphenhydramine Hcl (Benadryl Allergy), 25-50 MG PO Q8H PRN for Itching Epinephrine (Epipen), 0.3 MG IM UD PRN for ALLERGIC REACTION Loratadine (Claritin), 10 MG PO DAILY PRN for Allergy Symptoms Allergies Coded Allergies: Della Nut (Unverified Allergy, Severe, STOPS BREATHING, 04/27/17) Erythromycin (Verified Allergy, Intermediate, ABDOMINAL PAIN, 04/27/17) NUTS (Verified Allergy, Intermediate, SHORTNESS OF BREATH, 04/27/17) Ciprofloxacin (Verified Allergy, Unknown, "FELT HORRIBLE, COULD NOT BREATHE", 04/27/17) Fluoxetine (Verified Allergy, Unknown, ENTIRE BODY ON FIRE, TACHY, ) Physical Exam Vital Signs Date Time Temp Pulse Resp B/P (MAP) Pulse Ox O2 Delivery O2 Flow Rate FiO2 08/06/17 20:37 100 23 132/81 100 Room Air 08/06/17 20:33 72 08/06/17 20:04 82 20 139/100 99 Room Air 08/06/17 17:32 36.8 98 20 144/81 98 Room Air Physical Exam GENERAL: Awake, alert, anxious-appearing, NAD HENT: Normocephalic, atraumatic. EYES: Normal conjunctiva. Sclera non-icteric. NECK: Supple. No nuchal rigidity. FROM. RESPIRATORY: CTAB, no rhonchi, wheezing, crackles CARDIAC: RRR, no MRG ABDOMEN: Soft, NTND, BS+ MSK: No chest wall TTP, no LE edema NEURO: GCS 15, CN 2-12 intact, moves all 4s on command SKIN: No rash or jaundice noted. Medical Decision & Procedures ER Provider Diagnostic Interpretation: X-ray: Per my interpretation, radiologist review. CHEST ONE VIEW PORTABLE HISTORY: Generalized abdominal pain. COMPARISON: Chest 04/27/2017. FINDINGS: The lungs are clear. Cardiac silhouette is normal in size. No pleural effusions. No pneumothorax. IMPRESSION: No acute process. Electronically signed by: Neo Martínez M.D. 08/06/2017 7:41 PM Dictated Date/Time: 08/06/2017 7:40 PM Laboratory Results 08/06/17 19:45 Red Blood Count 4.41, Mean Corpuscular Volume 87.8, Mean Corpuscular Hemoglobin 29.9, Mean Corpuscular Hemoglobin Concent 34.1, Mean Platelet Volume 10.1, Neutrophils (%) (Auto) 63.1, Lymphocytes (%) (Auto) 30.9, Monocytes (%) (Auto) 4.3, Eosinophils (%) (Auto) 1.1, Basophils (%) (Auto) 0.5, Neutrophils # (Auto) 5.13, Lymphocytes # (Auto) 2.51, Monocytes # (Auto) 0.35, Eosinophils # (Auto) 0.09, Basophils # (Auto) 0.04 08/06/17 19:45 Test 08/06/17 18:50 08/06/17 19:39 08/06/17 19:45 Urine Color YELLOW Urine Appearance CLEAR (CLEAR) Urine pH 7.5 (4.5-7.5) Urine Specific [place] 1.007 (1.000-1.030) Urine Protein NEG (NEG) Urine Glucose (UA) NEG (NEG) Urine Ketones NEG (NEG) Urine Occult Blood 1+ (NEG) Urine Nitrite NEG (NEG) Urine Bilirubin NEG (NEG) Urine Urobilinogen NEG (NEG) Urine Leukocyte Esterase NEG (NEG) Urine WBC (Auto) 0 /hpf (0-5) Urine RBC (Auto) 0-4 /hpf (0-4) Urine Hyaline Casts (Auto) 0 /lpf (0-5) Urine Epithelial Cells (Auto) 10-20 /lpf (0-5) Urine Bacteria (Auto) NEG (NEG) Influenza Type A Antigen Neg for Influ A (NEG) Influenza Type B Antigen Neg for Influ B (NEG) White Blood Count 8.13 K/uL (4.8-10.8) Red Blood Count 4.41 M/uL (4.2-5.4) Hemoglobin 13.2 g/dL (12.0-16.0) Hematocrit 38.7 % (37-47) Mean Corpuscular Volume 87.8 fL (80-100) Mean Corpuscular Hemoglobin 29.9 pg (25-34) Mean Corpuscular Hemoglobin Concent 34.1 g/dl (32-36) Platelet Count 270 K/uL (130-400) Mean Platelet Volume 10.1 fL (7.4-10.4) Neutrophils (%) (Auto) 63.1 % Lymphocytes (%) (Auto) 30.9 % Monocytes (%) (Auto) 4.3 % Eosinophils (%) (Auto) 1.1 % Basophils (%) (Auto) 0.5 % Neutrophils # (Auto) 5.13 K/uL (1.4-6.5) Lymphocytes # (Auto) 2.51 K/uL (1.2-3.4) Monocytes # (Auto) 0.35 K/uL (0.11-0.59) Eosinophils # (Auto) 0.09 K/uL (0-0.5) Basophils # (Auto) 0.04 K/uL (0-0.2) RDW Standard Deviation 43.0 fL (36.4-46.3) RDW Coefficient of Variation 13.4 % (11.5-14.5) Immature Granulocyte % (Auto) 0.1 % Immature Granulocyte # (Auto) 0.01 K/uL (0.00-0.02) Anion Gap 8.0 mmol/L (3-11) Est Creatinine Clear Calc Drug Dose 110.4 ml/min Estimated GFR () 129.4 Estimated GFR (Non- 111.6 BUN/Creatinine Ratio 12.2 (10-20) Calcium Level 8.7 mg/dl (8.5-10.1) Magnesium Level 2.4 mg/dl (1.8-2.4) Laboratory results reviewed by me Medications Administered Medications (Trade) Dose Ordered Sig/[place] Route Start Time Stop Time Status Last Admin Dose Admin Sodium Chloride 1,000 ml @ 999 mls/hr Q1H1M STAT IV 08/06/17 19:18 08/06/17 20:18 DC 08/06/17 20:02 999 MLS/HR Ondansetron HCl (Zofran Inj) 4 mg NOW STAT IV 08/06/17 19:18 08/06/17 19:20 DC 08/06/17 20:01 4 MG Ketorolac Tromethamine (Toradol Inj) 30 mg NOW STAT IV 08/06/17 19:18 08/06/17 19:20 DC 08/06/17 20:02 30 MG ECG Per My Interpretation Indication: nausea Rate (beats per minute): 72 Rhythm: normal sinus Findings: other (prolonged QT, no over sts changes or twi) ED Course 1858: The patient was evaluated in room C5. A complete history and physical exam was performed. 2113: I reevaluated the patient and she feels better. Discussed results and discharge instructions: she verbalized understanding and agreement. The patient is ready for discharge. Medical Decision Nursing notes reviewed. Ancillary studies and prior records reviewed. The patient is a 42 year old white female with a past medical history of asthma , ovarian cyst, elevated LFTs, depression who presents to the ED with a cc of waxing and waning hypotension beginning a couple weeks ago. Positive cough, dizziness, lightheadedness, lip and fingertip tingling, nausea, headache when standing or sitting up. Negative urinary symptoms, bowel movement problems. Differential diagnosis: Etiologies such as viral syndrome, otitis, pharyngitis, pneumonia, influenza, meningitis, urinary tract infection, sepsis, bacteremia, as well as others were entertained. Patient was seen and evaluated at the bedside. Patient has had some flulike illnesses in addition to a recent URI. Patient is noted that her blood pressures been slightly low. Patient been seen at the primary care physician's office during which time she was told to increase her salt and fluid intake. Patient was also told to be delivered with positional changes. Patient denies any fainting. Patient does not complain of any vertiginous symptoms. Patient denies any chest pains or shortness of breath. Patient states on occasion she does have some palpitations. Patient did have blood work completed, EKG, kidney function, chest x-ray. Patient did have a flu swab which was negative. Chest x-ray is clear. EKG does not show any overt arrhythmia. Patient did have mildly prolonged QTC. Patient had been taking both Reglan and Zofran for nausea. She has recently stopped this. Given the fact that she has no other electrolyte abnormalities this is most likely precipitant of the prolonged QT should improve now that she has stopped taking the medication. Patient is not anemic. Patient has normal kidney function. Electrolytes also normal. Patient feels mildly improved. Patient has not had any episodes of hypotension or tachycardia per vital sign review as well as while in the patient's room. I discussed with the patient that she should discuss with her PCP. This could be something like pots. We did discuss possibility of some sort of endocrine dysfunction. She was also told to continue to hydrate well. She was also told to continue to be delivered with her positional changes. Patient was deemed suitable for outpatient follow-up and treatment at this time. Patient was given strict follow-up, discharge, and return precautions. All questions were answered. Patient was deemed suitable for outpatient follow-up at this time. Patient agreed with the plan of care and was safely discharged home. Medication Reconcilliation Current Medication List: was personally reviewed by me Blood Pressure Screening Patient's blood pressure: Elevated blood pressure Blood pressure disposition: Elevated BP felt to be situational Impression Primary Impression: Viral illness Additional Impression: Dizziness Scribe Attestation The scribe's documentation has been prepared under my direction and personally reviewed by me in its entirety. I confirm that the note above accurately reflects all work, treatment, procedures, and medical decision making performed by me. Departure Information Dispostion Home / Self-Care Referrals No Doctor, Assigned (PCP) Patient Instructions Dizziness Fainting Poss Causes, My [facility] Additional Instructions Please return to the emergency department if you have worsening or recurrent symptoms not amenable to at-home treatment. Please call for a follow-up appointment with her primary care physician. Please take your medications as prescribed. If you have other concerns and/or complaints please feel free to also call your primary care physician's office or return the ED for further evaluation, management, and treatment. You may take 600 mg Ibuprofen every 6 hours as needed for pain with food for no more than 2 consecutive days. You may take tylenol 1000 mg every 6 hours as needed for pain. You may take motrin and tylenol separately or at the same time. Take your medications as prescribed. Consider discussion with your primary care physician which may involve follow- up with the supervisor wood room and/or director of residence life. Continue to be deliberate with your position changes. You have been examined and treated today on an emergency basis only. This is not a substitute for, or an effort to provide, complete comprehensive medical care. It is impossible to recognize and treat all injuries or illnesses in a single emergency department visit. It is therefore important that you follow up closely with [facility], your PCP, and/or your specialist(s). Call as soon as possible for an appointment. Thank you for your time and consideration. I look forward to speaking with you again soon. Please don't hesitate to call us if you have any questions. Problem Qualifiers
[2017-08-06] MEDS ORDERED: KETOROLAC TROMETHAMINE 30 MG/ML VIAL IV STA (19:18)
[2017-08-06] MEDS ORDERED: ONDANSETRON INJ 2 MG/ML 2 ML VIAL IV STA (19:18)
[2017-08-06] MEDS ORDERED: SODIUM CHLORIDE 0.9% 1000ML 1,000 ML IV STA (19:18)
--- NOTE | 2017-08-06 19:42 | DIAGNOSTIC IMAGING REPORT ---
CHEST ONE VIEW PORTABLE HISTORY: Generalized abdominal pain. COMPARISON: Chest 04/27/2017. FINDINGS: The lungs are clear. Cardiac silhouette is normal in size. No pleural effusions. No pneumothorax. IMPRESSION: No acute process. Electronically signed by: Neo Martínez M.D. 08/06/2017 7:41 PM Dictated Date/Time: 08/06/2017 7:40 PM
[2017-08-06 19:56] LABS: BASO % 0.5 %; BASO ABS # 0.04 K/uL (0-0.2); EOS % 1.1 %; EOS ABS # 0.09 K/uL (0-0.5); HEMATOCRIT 38.7 % (37-47); HEMOGLOBIN 13.2 g/dL (12.0-16.0); IG# 0.01 K/uL (0.00-0.02); LYMPH % 30.9 %; LYMPH ABS # 2.51 K/uL (1.2-3.4); MEAN CELL VOLUME 87.8 fL (80-100); MEAN CORPUSCULAR HEMOGLOBIN 29.9 pg (25-34); MEAN CORPUSCULAR HGB CONC 34.1 g/dl (32-36); MEAN PLATELET VOLUME 10.1 fL (7.4-10.4); MONO % 4.3 %; MONO ABS # 0.35 K/uL (0.11-0.59); NEUT % 63.1 %; NEUT ABS # 5.13 K/uL (1.4-6.5); PLATELET COUNT 270 K/uL (130-400); RED CELL DISTRIBUTION WIDTH CV 13.4 % (11.5-14.5); WHITE BLOOD COUNT 8.13 K/uL (4.8-10.8)
[2017-08-06 20:14] LABS: CALCIUM 8.7 mg/dl (8.5-10.1); CREATININE 0.6 mg/dl (0.60-1.20); POTASSIUM 3.6 mmol/L (3.5-5.1)
[2017-08-06 20:25] LABS: INFLUENZA B ANTIGEN Neg for Influ B (NEG)
[2017-08-06 21:55] VITALS: BP 116/78; PULSE 82; O2SAT 99
[2017-08-06] MEDS ORDERED: DIPH25CA65 PO (22:33)
[2017-08-06] MEDS ORDERED: EPP3/2 IM (22:39)
[2017-08-06] MEDS ORDERED: CLR10 PO (22:53)
[2017-08-06] MEDS ORDERED: CLON0.5T3 PO (22:53)
[2017-08-06] MEDS ORDERED: ALBU18002 INH (22:53)
== END 2017-08-06 22:00 | disposition home or self-care (01) ==
LOC: C.EDB 17:16 → C.EDC 22:00
DX: B34.9 Viral infection, unspecified (principal); R42 Dizziness and giddiness; R51 Headache; R20.2 Paresthesia of skin; J45.909 Unspecified asthma, uncomplicated; Z90.49 Acquired absence of other specified parts of digestive tract; Z86.59 Personal history of other mental and behavioral disorders; Z98.890 Other specified postprocedural states; Z80.9 Family history of malignant neoplasm, unspecified; Z82.49 Family history of ischemic heart disease and other diseases of the circulatory system; Z91.018 Allergy to other foods; Z88.1 Allergy status to other antibiotic agents; Z88.8 Allergy status to other drugs, medicaments and biological substances

== ENCOUNTER → 2017-09-05 | Day surgery (SDC) | payer OTHER ==
[~2017-09-05] VITALS: Ht 154.9 cm; Wt 72.7 kg
[~2017-09-05] MED LIST changes: +ALBU18002 INH; +CLR10 PO; +COSYNTROPIN INJ 1 MCG in SYRINGE 0 ML IV SCH; +DIPH25CA65 PO; +EPP3/2 IM; -METO-157 PO; -ONDA4TAB10 SL; -ONDA4TAB46 PO
[2017-09-05 07:27] VITALS: BP 107/75; PULSE 81; TEMP 36.5; O2SAT 97; Ht 154.9 cm; Wt 72.7 kg
[2017-09-05 08:35] VITALS: BP 120/82; PULSE 84; TEMP 36.4; O2SAT 100
[2017-09-05 09:03] VITALS: BP 115/77; PULSE 82; TEMP 36.6; O2SAT 100
== END | disposition home or self-care (01) ==
LOC: C.MTU 07:18
PROVIDERS: ATTEND Internal Medicine Endocrinology, Diabetes & Metabolism
DX: R42 Dizziness and giddiness (principal)

== ENCOUNTER → 2017-09-12 | Day surgery (SDC) | payer OTHER ==
[~2017-09-12] VITALS: Ht 154.9 cm; Wt 75.0 kg
[~2017-09-12] MED LIST changes: -COSYNTROPIN INJ 1 MCG in SYRINGE 0 ML IV SCH
[2017-09-12 07:56] VITALS: BP 116/82; PULSE 75; TEMP 36.4; O2SAT 96; Ht 154.9 cm; Wt 75.0 kg
--- NOTE | 2017-09-12 14:47 | [facility] Operative Report ---
Operative Report Date of Service September 12, 2017. 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 Recently she has been having symptoms of dizziness and palpitations especially changes in position. She is advised undergo tilt-table testing for diagnosis. Procedure in detail: The patient was informed of the risks benefits and alternatives to the intended procedure. She understood such which proceed. She was taken to the electrophysiology suite where she was placed supine on the tilt table. Continuous hemodynamic monitoring was then initiated which included pulse oximetry, telemetry and intermittent blood pressure monitoring. After resting. The patient was tilted 80 degrees. Symptoms and hemodynamics were monitored. At the conclusion of the case the patient was returned to supine position. Hemodynamics and symptoms were allowed to return to normal prior to discharge. The patient tolerated procedure well. There no immediate complications. Findings: Baseline hemodynamics blood pressure is 116/82 with pulse of 75 During head-up tilt-table testing there was no significant derangement in hemodynamics. There were no symptoms reported. At the conclusion of the case the patient's blood pressure is 115/78 with pulse of 74 Impression: Negative head-up tilt-table test No syncope No symptoms No evidence of POTS No evidence of cardioinhibitory or vasodepressor effect I attest to the content of the Intraoperative Record and any orders documented therein. Any exceptions are noted below.
== END | disposition home or self-care (01) ==
LOC: C.CATH 07:36
PROVIDERS: ATTEND Internal Medicine Clinical Cardiac Electrophysiology
DX: R55 Syncope and collapse (principal)